=== PATIENT | male | born 1960 | race Caucasian/White ===

== ENCOUNTER 2025-03-12 20:44 | Inpatient (IN) | payer BC ==
[~2025-03-12] VITALS: Ht 172.7 cm; Wt 90.9 kg
--- NOTE | 2025-03-12 20:57 | Physician Documentation ---
History of Present Illness ~ Chief Complaint: Chest Pain Stated Complaint: TRANSFER Time Seen by MD: 20:56 HPI Patient presents to the emergency room as a transfer from [facility] for NSTEMI. He states he woke up from sleep today and that has that has heart was racing. He had attempted to take his blood pressure reading but he would not take therefore he came to the emergency room to be evaluated. He was found to be in SVT was converted with adenosine. Slight elevation of initial troponins and these were trended out with significant increase. Dr. River was consulted recommended that the patient get an investigation. Reports that he had a negative stress test in 2020. Denies chest pain. Medication Reconciliation Allergies: Coded Allergies: No Known Allergies (Unverified , 03/12/25) Review of Systems ROS All review of systems negative except as per HPI Physical Exam Vital Signs: Temperature: 98.7, Source: Oral, Heart Rate: 87, Respiratory Rate: 16, BP: 146/90, Pulse Oximetry: 97, Weight: 90.910 Oxygen Flow Rate: 0 Physical Exam General: Patient is awake, alert, oriented x4 in no acute distress and well appearing.~ Head: Normocephalic and atraumatic. Eyes: Conjunctival normal. EOMI. PERRL. ENT: Mucous membranes moist. Neck: Supple, trachea is midline. Chest: Clear to auscultation bilaterally without rales, rhonchi, or wheezes. There is no accessory muscle use or retractions. Cardiac: RRR without murmurs, gallops, or rubs. Abd: Soft, nondistended, nontender, with normoactive bowel sounds. No guarding, rebound, or rigidity. Progress Results/Orders Results/Orders Orders - ZANE SPICER MD Pt Inr (03/12/25 20:59) PTT (03/12/25 20:59) Heparin 10,000 Unit/Ml 1ml (Heparin 10,0 (03/12/25 21:00) Cbc/Diff (03/12/25 21:06) MG (03/12/25 21:06) BMP (03/12/25 21:06) Hs Troponin I W Calculations (03/12/25 21:06) Page Hospitalist (03/12/25 21:) Fill Out Med Reconciliation (03/12/25 21:06) Heparin 25,000 Unit/250ml Bag (Heparin 2 (03/12/25 21:17) Completed Orders - ZANE SPICER MD Heparin Drip Acs*Rph-To-Dose* (Heparin D (03/12/25 20:55) Communication Order (Communication Order (03/12/25 20:55) Electrocardiogram (03/12/25 20:56) Heparin 25,000 Unit/250ml Bag (Heparin 2 (03/12/25 21:00) No Initial Heparin Drip Bolus (No Initia (03/12/25 21:00) Message To Nursing (03/12/25 21:20) Vital Signs 03/12/25 20:52 Temp 98.7 Pulse 87 Resp 16 B/P (MAP) 146/90 Pulse Ox 97 O2 Flow Rate 0 Laboratory Tests Test 03/12/25 21:07 CBC Comment Coagulation Comments Chemistry Comments EKG/XRAY/CT/US/VASC/MRI EKG : Additional Comment EKG interpreted by myself shows time of 2052, rate 82, sinus rhythm, normal axis, no ST changes Medical Decision Making Additional information obtaine: N/A Findings Patient presents to the emergency room that has transfer from [facility] for NSTEMI on heparin. We will continue heparin. No current chest pain. Heart Score: 5 Differential Dx:Considerations: Include: angina, aortic dissection, chest wall pain, cholelithiasis, CHF, costochondritis, esophageal reflux/spasm, gastritis, herpes zoster, myocardial infarction, pericarditis, pleuritis, pancreatitis, pneumonia, pneumothorax, pulmonary embolus, other Departure Admitted to Inpatient Unit: yes, to hospitalist Impression: Primary Impression: NSTEMI (non-ST elevated myocardial infarction) Condition: Guarded Referrals: NO PRIMARY CARE PROVIDER (PCP) Critical Care Note Total Time (mins): 30 Critical Care Note The very real possibility of a deterioration of this patient's condition required the highest level of my preparedness for sudden, emergent intervention. I provided critical care services, which included medication orders, frequent reevaluations of the patient's condition and response to treatment, ordering and reviewing test results, and discussing the case with various consultants. Excludes time spent performing separately billable procedures. The critical care time associated with the care of the patient was 30 minutes not counting procedures Signature Scribe Signature: No scribe Attestation: The note accurately reflects work and decisions made by me.Zane Spicer MD 03/12/25 21:24 ZANE SPICER MD Mar 12, 2025 20:57
--- NOTE | 2025-03-12 20:57 | ELECTROCARDIOGRAPH REPORT ---
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 Chico Ratliff Measurements Intervals [place] Rate: 82 P: 46 IN: 138 QRS: 20 QRSD: 104 T: 49 QT: 389 QTc: 455 Interpretive Statements Sinus rhythm Low voltage, precordial leads Electronically Signed On 03-13-2025 19:08:[address] Chico Ratliff Please click the below link to view image of tracing.
[2025-03-12] MEDS ORDERED: heparin 10,000 units/1 ML INJ IV PRN (21:00)
[2025-03-12] MEDS ORDERED: heparin 25,000 UNIT/250ml bag 250 ML IV PRN (21:00)
[2025-03-12 21:16] LABS: MEAN PLATELET VOLUME 7.3 FL (7.4-10.4); RED CELL DISTRIBUTION WIDTH 13.3 % (11.5-14.5)
[2025-03-12] MEDS: HEPARIN DRIP INITAL BOLUS --- DO NOT GIVE/ORDER MC ONE (21:20)
[2025-03-12] MEDS: COMMUNICATION ORDER 1 EA MISC MC ONE (21:20)
[2025-03-12] MEDS: HEPARIN DRIP-CARDIAC**PHARMACIST-TO-DOSE IV ONE (21:20)
[2025-03-12] MEDS: heparin 25,000 UNIT/250ml bag 250 ML IV PRN (21:29)
[2025-03-12 21:32] LABS: CREATININE 1.26 MG/DL (0.60-1.10); TOTAL CARBON DIOXIDE 30.2 MMOL/L (24-32); eCRCL 58 ML/MIN; eGFR 58 ML/MIN
[2025-03-12] MEDS: MESSAGE TO NURSING IV ONE ×2 (21:32→22:05)
[2025-03-12 21:56] LABS: APTT 64 SECONDS (22-32); INR 1.1 INR
[2025-03-12] MEDS ORDERED: mag hydrox/Alum hydrox/simeth 30ml oral suspension PO PRN (22:10)
[2025-03-12] MEDS ORDERED: potassium Cl 40MEQ/1/2NS 520ml 520 ML IV PRN (22:10)
[2025-03-12] MEDS ORDERED: magnesium Cl slow-release 64mg tablet PO PRN (22:10)
[2025-03-12] MEDS ORDERED: magnesium hydroxide 30ml (MOM) UD suspension PO PRN (22:10)
[2025-03-12] MEDS ORDERED: potassium Cl 20 mEq SR tablet PO PRN (22:10)
[2025-03-12] MEDS ORDERED: magnesium sulf-water 4G/100mL 100 ML IV PRN (22:10)
[2025-03-12] MEDS ORDERED: ondansetron/PF 4mg/2ml inj IV PRN (22:10)
[2025-03-12] MEDS ORDERED: magnesium sulf-water 2g/50mL 50 ML IV PRN (22:10)
[2025-03-12] MEDS ORDERED: LEVO100T9 PO (22:14)
[2025-03-12] MEDS ORDERED: ZOLP-679 PO (22:15)
--- NOTE | 2025-03-12 22:32 | HISTORY AND PHYSICAL-Residence ---
History & Physical Providers to CC Resident Creating Document: JEWELLMARYTabbySANDI RES ~ History of Present Illness Reason for Admit\Complaint: Chest pain History of Present Illness This is a 64-year-old male transferred from [facility]. Patient reports that around 10:00 a.m. this morning after he woke up from asleep he experienced heart racing and slight chest pain. He reports that chest pain was mild, 2/10 in intensity, mainly present in the center of the chest, not radiating, no relieving or aggravating factors present. He also reported having slight lightheadedness but did not experience any syncope. Patient says that he had similar symptoms in the past with lower intensity and symptoms would resolve by drinking beer. However, this time patient felt this episode was something very unusual and went to the hospital for evaluation. Patient currently denies any symptoms nausea, vomiting. According to the records from [facility] patient presented to the ED with SVT. His heart rate was found to be in high 100s and low 200s on arrival. Patient underwent cardioversion with IV pushes of adenosine. He had no response to 6 mg, had a minimal response to the 1st push of 12 mg, and then converted back to a sinus rhythm with a 2nd push of 12 mg. His chest pain and palpitations resolved after he returned to a normal rhythm. EKG done at the facility showed no acute ischemic changes. Patient reports of having a stress test in 2020 and recently underwent Holter monitoring and Echo to evaluate for episodes of SVT and is also planning to be referred for ablation by Cardiology at [place] but has not yet established with a hogshead inspector, currently has no hogshead inspector that he sees. Patient denies any history of heart attacks or stents placed in the past. His troponins were trending up initially was 0.23, 2.12 and 3.54. Patient was started on heparin drip. Patient was transferred to our facility for higher level of monitoring by Cardiology. Allergies: Coded Allergies: No Known Allergies (Unverified , 03/12/25) Home Medications Home Medications Active Reported Ambien (Zolpidem Tartrate) 10 Mg Tablet 1 Tab PO HSPRN PRN 30 Days Levothyroxine Sodium 100 Mcg Tablet 1 Tab PO DAILY Past Medical History Past Medical History AFib Hypothyroidism Past Surgical History Surgical History Comment Appendectomy Tonsillectomy Past Social History Social History Comment Patient stopped smoking 20 years ago, earlier would smoke 2 packs per day. Patient drinks beer every day, 6-8 cans per day, light low calorie beers. No illicit drug use. PCP- Dr Payne-at [facility] Patient lives at home with his TAMIKA LUNDBERG Constitutional: Denies: no symptoms reported, Eyes: Denies: no symptoms reported ENT: Denies: no symptoms reported Respiratory: Denies: no symptoms reporteD Cardiovascular: Denies: no symptoms reported Gastrointestinal: Denies: no symptoms reported Genitourinary: Denies: no symptoms reported Female Genitalia: Denies: no reported symptoms Neurological: Denies: no symptoms reported Musculoskeletal: Denies: no symptoms reported Endocrine: Denies: no symptoms reported Exam Vitals: Vital Signs Date Time Temp Pulse Resp B/P (MAP) Pulse Ox O2 Delivery O2 Flow Rate FiO2 03/12/25 22:08 81 12 147/91 (109) 98 0 03/12/25 20:52 98.7 General: General: Awake, alert, oriented to time place person, not in acute distress HEENT: Conjunctive are pink, sclerae clear, no icterus, Neck: Supple, no JVD, no lymphadenopathy and thyromegaly. Chest: Equal air entry on both lungs, no added sounds, no wheeze. Cardiovascular: S1-S2 heard, sinus, regular rhythm no gallops, no rubs, no murmurs Abdomen: soft, obese, nontender, no guarding, no rigidity Extremities: No edema, no cyanosis, peripheral pulsations intact Central Nervous System: No focal neurological deficits Musculoskeletal: No joint swelling, deformities, inflammations, and no scoliosis and back tenderness Skin: Warm and dry. Diagnostic Data Last Recorded Lab Results: 03/12/25210603/12/252106 Diagnostic Data: Laboratory Tests Test 03/12/25 21:07 Prothrombin Time 10.8 SECONDS (9.0-12.0) INR International Normalized Ratio 1.1 INR Activated Partial Thromboplast Time 64 SECONDS (22-32) H Coagulation Comments Advance Care Planning Advanced Care plannin - 30 Minutes (Full code) Additional Plan NSTEMI KIA score-1 ZACKERY score 94 Patient currently denying any symptoms of chest pain Patient is hemodynamically stable EKG shows normal sinus rhythm, no ST elevation depressions, no T-wave inversions seen. Troponin elevated 5477, 4102 Patient on heparin drip Given aspirin 325 mg once, atorvastatin 80 mg, metoprolol succinate 25 mg Continue aspirin 81 mg once daily, statin 40 mg from tomorrow. Echocardiogram. Follow-up TSH high 8.49. Patient on telemetry monitoring Consult Cardiology in the a.m. AFib CHADS-VASc score- 1 Patient is currently in sinus rhythm with a controlled heart rate We will continue to monitor him on telemetry Currently patient not on any anticoagulation medications. BYRON- Likely prerenal Creatinine-1.26 Baseline creatinine unknown Patient on fluids NS 75 cc/hour Urine lytes ordered. Follow-up Hypothyroidism- TSH increased 8.49 Free T4 ordered. Follow-up Patient currently on 100 mcg of levothyroxine. Disposition- continue to monitor troponins, patient will be on telemetry monitoring and be admitted to PCU. Code status: Full code DVT profile: Heparin Diet: Heart healthy Sandi Myers PGY-1 i saw and discussed the patient with the resident team and agree with assessment and plan Date of Service: Mar 12, 2025 Billing Provider: STACIA ALEGRIA MD, PREETHI, RES Mar 12, 2025 22:32 STACIA ALEGRIA MD Mar 13, 2025 04:59
[2025-03-12] MEDS: adenosine 3mg/ml 2ml vial IV ONE (22:54)
[2025-03-12] MEDS ORDERED: adenosine 3mg/ml 2ml vial IV ONE (23:00)
[2025-03-12] MEDS: metoprolol succinate 25mg (24-HOUR) SR. Tablet PO ONE (23:04)
[2025-03-12] MEDS: normal saline 1000ml 1,000 ML IV SCH (23:17)
[2025-03-13] VITALS (10 sets, daily range): BP systolic 118–185; BP diastolic 70–110; PULSE 71–78; RESP 10–20; TEMP 97.8–98.7; O2SAT 93–97
--- NOTE | 2025-03-13 01:09 | ELECTROCARDIOGRAPH REPORT ---
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 Jesus Jones Measurements Intervals [place] Rate: 75 P: 41 NM: 141 QRS: 18 QRSD: 109 T: 55 QT: 410 QTc: 458 Interpretive Statements Sinus rhythm RSR' in V1 or V2, right VCD or RVH Electronically Signed On 03-14-2025 13:20:[address] Jesus Jones Please click the below link to view image of tracing.
[2025-03-13 04:55] LABS: MEAN PLATELET VOLUME 7.6 FL (7.4-10.4); RED CELL DISTRIBUTION WIDTH 13.6 % (11.5-14.5)
[2025-03-13 05:23] LABS: CHOL/HDL RATIO 2.4 (0.00-4.99); CREATININE 1.12 MG/DL (0.60-1.10); LDL CHOLESTEROL 122 MG/DL (50-100); TOTAL CARBON DIOXIDE 29.3 MMOL/L (24-32); eCRCL 65 ML/MIN; eGFR 66 ML/MIN
[2025-03-13] MEDS: MESSAGE TO NURSING IV ONE ×3 (05:28→22:05)
[2025-03-13] MEDS: metoprolol succinate 25mg (24-HOUR) SR. Tablet PO SCH (07:49)
[2025-03-13] MEDS: docusate sod 100mg capsule PO SCH (07:50)
[2025-03-13] MEDS: aspirin 81mg, enteric-coated 1 TAB TABLET.DR PO SCH (07:50)
[2025-03-13] MEDS: levoTHYROXINE 100mcg tablet PO SCH (07:50)
[2025-03-13] MEDS: K and/or MAG REPLACEMENT MC SCH (08:00)
[2025-03-13 11:41] LABS: LEUKOCYTE ESTERASE ,URINE NEGATIVE (Neg); NITRITES, URINE NEGATIVE (Neg); OCCULT BLOOD,URINE NEGATIVE (Neg)
[2025-03-13 11:48] LABS: UA COLLECTION TYPE CLN CATCH MIDSTREAM
[2025-03-13 11:51] LABS: OSMOLALITY UA 544.0 MOSM/K (50-1400)
[2025-03-13 11:57] LABS: CREATININE,URINE RANDOM 134.0 MG/DL; UA UREA RANDOM 627.0 MG/DL
[2025-03-13] MEDS: normal saline 1000ml 1,000 ML IV SCH (14:08)
--- NOTE | 2025-03-13 17:16 | CARDIOLOGY REPORT ---
APPROVED REPORT EXAM: Comprehensive 2D, Doppler, and color-flow Echocardiogram. Patient Location: [facility] Heart Rate: 76 bpm Rhythm: NSR Indications CHEST PAIN HS TROPONIN 5477, 4107, 3563, 3365 2D Dimensions RVDd 3.9 cm IVSd 1.0 (0.7-1.1cm) LVDd 5.1 cm PWd 1.0 (0.7-1.1cm) IVSs 1.4 (0.8-1.2cm) LVDs 3.5 (2.5-4.0cm) PWs 1.6 (0.8-1.2cm) LVOT Diameter 2.00 (1.8-2.4cm) LVEF(%) 58.9 (>50%) FS (%) 31.4 % SV 72.6 ml CO 5.2 L/min M-Mode Dimensions Left Atrium(MM) 4.16 (2.5-4.0cm) Aortic Root 3.00 (2.2-3.7cm) Aortic Cusp Exc 1.83 (1.5-2.0cm) Aortic Valve AoV Peak Jamshid. 148.3 cm/s AoV VTI 30.1 cm AO Peak GR. 8.8 mmHg AO Mean GR. 5 mmHg LVOT VTI 25.30 cm LVOT Peak Jamshid. 103.4 cm/s WALDEMAR (VTI) 2.65 cm2 AV DI 0.84 % Mitral Valve MV E Velocity 98.6 cm/s MV Peak Gr. 5 mmHg MV A Velocity 94.8 cm/s MV PHT 68 ms E/A Ratio 1.0 MVA (PHT) 3.24 cm2 MV VMax 110.9 cm/s LEFT VENTRICLE Normal LV size and wall thickness. Overall systolic function is normal. LVEF is 55-60%. RIGHT VENTRICLE RV is mildly dilated with normal function. ATRIA Left atrium is mildly dilated. The right atrium size is normal. AORTIC VALVE Trileaflet AV appears mildly sclerotic without stenosis. No insufficiency. MITRAL VALVE The mitral valve is normal in structure. Mild regurgitation. TRICUSPID VALVE The tricuspid valve is normal in structure. Trace regurgitation. PULMONIC VALVE The pulmonary valve is normal in structure. Physiologic insufficiency. GREAT VESSELS The aortic root is normal in size. The ascending aorta is normal in size. The IVC is normal in size and collapses >50% with inspiration. PERICARDIUM Normal pericardium. No effusion. Other Information Study Quality: Adequate Conclusion Normal LV size and wall thickness. Overall systolic function is normal. LVEF is 55-60%. RV is mildly dilated with normal function. Left atrium is mildly dilated. Trileaflet AV appears mildly sclerotic without stenosis. No insufficiency. The mitral valve is normal in structure. Mild regurgitation. The tricuspid valve is normal in structure. Trace regurgitation. Normal pericardium. No effusion.
--- NOTE | 2025-03-13 17:34 | PROGRESS NOTE- Residence ---
Progress Note - Resident Providers to CC Resident Creating Document: MACIEL WEBSTER, ASHLEY ~ Central Line/PICC still needed: No Davis-Non Protocol Davis Indications Met/Not Met: F/C Indications Not Met Antibiotic Timeout Antibiotic Ordered?: No Subjective Patient denied any further chest pain. No acute other overnight events. Plan for cardiac catheterization today by Dr. Ahuja. Objective Vital Signs Date Time Temp Pulse Resp B/P (MAP) Pulse Ox O2 Delivery O2 Flow Rate FiO2 03/13/25 15:00 98.0 75 20 173/93 (119) 96 Room Air 03/12/25 22:08 0 Result Diagram: 03/13/258 03/13/25437 General: Awake and Alert, no acute distress. HEENT: Conjunctiva pink, Sclera clear, Mucus Membranes moist. Resp: Unlabored. Lungs clear to auscultation bilaterally. Heart: Regular Rate and rhythm, normal S1 and S2 without murmur, rub or gallop. Abdomen: Soft and non tender no organomegaly Extremities: No cyanosis,clubbing or edema. Skin: Warm and Dry. Coagulation Studies Laboratory Tests Test 03/12/25 21:07 03/13/25 11:02 Prothrombin Time 10.8 SECONDS (9.0-12.0) INR International Normalized Ratio 1.1 INR Activated Partial Thromboplast Time 64 SECONDS (22-32) H APTT (Heparin Protocol) 47 SECONDS (45-60) Coagulation Comments Assessment Assessment This is a 64-year-old male patient with a past medical history of hypothyroidism and insomnia who presented to the hospital with complaints of chest pain and was found to have an NSTEMI. He was transferred from [place] to [facility] for higher level cardiac care. Plan Plan NSTEMI: No significant EKG findings No wall motion abnormalities on echocardiogram On aspirin 81 mg daily, atorvastatin 40 mg daily, metoprolol 25 mg daily Heparin drip started overnight Plan for cardiac catheterization today by Dr. Ahuja Continue telemetry monitoring Prn nitroglycerin for chest pain Supraventricular tachycardia: Unable to find atrial fibrillation on telemetry monitoring History of tachycardia, evaluated by outpatient heart monitor One dose adenosine given in the ER; improved heart rate Requested records from outpatient primary care Continue close telemetry monitoring Alcohol withdrawal Consumes up to eight beers per day Placed on mild alcohol withdrawal protocol Consider PRN Lopressor for tachycardia and hypotension overnight/one time low dose of atenolol Hypothyroidism TSH 8.49, T4 0.88 Asymptomatic for hypothyroidism Continue levothyroxine 100 mcg daily as per home medication Outpatient evaluation with repeat TSH and T4 in 6-8 weeks Hyperlipidemia: ASCVD risk of 13.4% Continue atorvastatin 40 mg daily at discharge Lines: PIV Code status: Full code DVT prophylaxis: Heparin rina Webster PGY3, Internal medicine resident Patient was seen, examined and discussed with the attending MD, Dr. Fermin Date of Service: Mar 13, 2025 Billing Provider: BHARAT FERMIN MD Common Visit Codes: 64751-[id number] INP/OBS CARE(HIGH) MACIEL WEBSTER, RES Mar 13, 2025 17:34 BHARAT FERMIN MD Mar 14, 2025 06:40
[2025-03-13] MEDS ORDERED: diazepam inj 5 MG/ML inj. IV PRN (18:00)
--- NOTE | 2025-03-13 18:13 | CONSULTATION REPORT ---
Cardiac Consultation Report Providers to CC ~ Subjective Subjective Cardiology consultation: Abnormal cardiac enzymes. Angina. Ureteral male who has a known history of recurrent paroxysmal atrial tachycardia however he has not wanted to start medication or have ablation had an episode was more severe and felt different than before. In the past he would treated with a couple of beers. By his heart rate was as high as 200 and save to 12 mg push of Adenocard prior to conversion. He had typical angina during it. He was placed on heparin and transferred here as his troponin was five. Nuclear stress test in 2020 was apparently unremarkable. General cares with Dr. Freeman. Patient thinks he is medically nonadherent. Allergies none known medications Ambien and levothyroxine as an outpatient. An outpatient he takes levothyroxine BNP. Does not smoke. He drinks up to eight beers per day. Presently he is pain-free. Up until this time he kept it from his that he had runs of supraventricular tachycardia. This time she came to the emergency room with him. She will TSH was 8.49. Patient is on heparin and received aspirin atorvastatin metoprolol succinate. Objective Vitals Vital Signs Date Time Temp Pulse Resp B/P (MAP) Pulse Ox O2 Delivery O2 Flow Rate FiO2 03/13/25 15:00 98.0 75 20 173/93 (119) 96 Room Air 03/12/25 22:08 0 Lab Results: 03/13/25 0438 03/13/25 0438 Objective Carotid brisk upstroke no bruit chest clear to auscultation percussion heart no murmur no S3 gallop no rub abdomen active bowel sounds no bruits pulses plus two upper and lower extremities no edema ocular motion intact no nystagmus no tremors speech fluent Coagulation Studies Laboratory Tests Test 03/12/25 21:07 03/13/25 17:26 Prothrombin Time 10.8 SECONDS (9.0-12.0) INR International Normalized Ratio 1.1 INR Activated Partial Thromboplast Time 64 SECONDS (22-32) H Coagulation Comments Other Results Echocardiogram within normal limits electrocardiogram within normal limits creatinine 1.12. Should troponin five decreasing now down to four. Problem\Assessment\Plan Additional Plan Impression: Supraventricular tachycardia with angina pectoris and troponin rise to five. Post conversion chemically no ST depression or elevation. Troponins are decreasing patient is on heparin. Asymptomatic at this time. Recommendation 1. Cessation of beer use otherwise your arrhythmias are going to continue to occur and ultimately he will have atrial fibrillation. 2. Diagnostic coronary angiography to exclude hemodynamically significant coronary arterial disease. 3. Coronary arteries are adequate without severe stenoses an outpatient should have ablation treatment of supraventricular tachycardia. Risks benefits alternatives of diagnostic coronary angiography intervention as may be needed was discussed with patient. Risks include and not restricted to stroke myocardial infarction renal failure neurologic vascular complications bleeding complications allergic reaction emergency coronary bypass grafting and its attendant complications. Going to discuss it with his . tentatively he is scheduled for 9:30 a.m. in a.m.. REGI PEREZ MD Mar 13, 2025 18:13
[2025-03-13] MEDS: HYDROcodone/acetaminophen 5mg/325mg tablet PO PRN (19:15)
[2025-03-13] MEDS: hydrALAZINE 20mg/ml inj. IV ONE (23:43)
[2025-03-14] VITALS (16 sets, daily range): BP systolic 123–171; BP diastolic 70–101; PULSE 61–85; RESP 12–18; TEMP 97.3–98.2; O2SAT 96–99
[2025-03-14] MEDS: MESSAGE TO NURSING IV ONE ×2 (00:25→07:40)
[2025-03-14 05:57] LABS: CREATININE 0.89 MG/DL (0.60-1.10); TOTAL CARBON DIOXIDE 30.5 MMOL/L (24-32); eCRCL 82 ML/MIN; eGFR 86 ML/MIN
[2025-03-14 05:59] LABS: MEAN PLATELET VOLUME 8.2 FL (7.4-10.4); RED CELL DISTRIBUTION WIDTH 13.0 % (11.5-14.5)
[2025-03-14] MEDS ORDERED: LIDOcaine 1% 30ml preserv. free vial ONE (10:09)
[2025-03-14] MEDS ORDERED: midazolam 1 mg/ML 2ml injection ONE (10:09)
[2025-03-14] MEDS ORDERED: fentaNYL/PF 50MCG/1 ML 2ML syringe ONE (10:09)
[2025-03-14] MEDS ORDERED: heparin 1,000unit/ml 10ml vial 0 ML ONE (10:09)
[2025-03-14] MEDS ORDERED: iohexol 350 MG/ML 50ML vial IV ONE (10:09)
[2025-03-14] MEDS: hydrALAZINE 20mg/ml inj. IV ONE (10:39)
[2025-03-14] MEDS ORDERED: HYDROcodone/acetaminophen 10/325mg tab PO PRN (11:35)
[2025-03-14] MEDS ORDERED: OXAZEpam 15mg capsule PO PRN (11:35)
[2025-03-14] MEDS: normal saline 1000ml 1,000 ML IV SCH (11:35)
[2025-03-14] MEDS ORDERED: ondansetron/PF 4mg/2ml inj IV PRN (11:35)
--- NOTE | 2025-03-14 12:37 | CARDIAC CATH REPORT ---
Cardiology Post Cath Findings Findings Findings: Uncomplicated left heart catheterization coronary angiography. Indication: Patient transferred post SVT requiring 24 mg of Adenocard for conversion with associated chest pain at that time and ST-T changes. Troponin arin to five. He was just to have a non ST elevated OH he is to undergo diagnostic coronary angiography to exclude hemodynamically significant coronary artery disease. Weeks ago he was referred to [place] by his primary care physician to have ablation. He has had a prior outpatient evaluation finding episodes of rapid tachycardia. I do not have the actual strips. 1. Normal left ventriculogram ejection fraction 70% 2. Normal left and right coronary arteries with intimal irregularities consistent with patient's age. Impression: Non ST elevated OH was secondary to supraventricular tachycardia rate up to 200. Recommendation 1. Complete cessation of alcohol drinks 6-12 beers per day accor ding to . 2. Follow-up for EP evaluation and treatment. Follow your primary care's direction. 3. If he remains stable discharge in a.m.. REGI PEREZ MD Mar 14, 2025 12:37
[2025-03-14 13:00] LABS: PRO BRAIN NATRIURETIC PEPTIDE 1126 PG/ML (0-125)
[2025-03-14] MEDS: HYDROcodone/acetaminophen 10/325mg tab PO PRN (14:43)
--- NOTE | 2025-03-14 16:46 | CARDIOLOGY REPORT ---
DATE OF SERVICE: 03/14/2025 DICTATING PHYSICIAN: Wong Ahuja MD DATE OF PROCEDURE: 03/14/2025 PROCEDURES: 1. Left heart catheterization. 2. Left ventriculography. 3. Selective right and left coronary arteriography. 4. Right iliofemoral arteriogram, Angio-Seal application. 5. Conscious sedation administration for 30 minutes. BRIEF HISTORY AND INDICATION: The patient had SVT 200 beats per minute, troponin rise to [address] changes. He was judged to have non-ST elevated W[place], perhaps secondary to the SVT. He is to undergo diagnostic coronary angiography to exclude hemodynamically significant coronary artery disease. He has treated hypothyroidism. Unfortunately, he drinks up to 12 beers per day. He has had past referral to [facility] for ablation of supraventricular tachycardia, but has not yet gone. Risks, benefits, and alternatives of diagnostic heart catheterization were discussed with the patient. He discussed it with his and he has decided to proceed. Risks include but are not restricted to , stroke, myocardial infarction, renal failure, neurologic and vascular complication, bleeding complication, allergic reaction, emergency coronary artery bypass grafting, and its attendant complications. TECHNIQUE: Following usual sterile preparation and draping, the right groin was infiltrated with 10 mL of 1% lidocaine local anesthetic. Conscious sedation was achieved with 25 mg of Benadryl, 2 mg of Versed, and 100 mcg of fentanyl. The patient arrived to the label cutter on 900 units of intravenous heparin per hour. He was maintained on oxygen 2 liters per minute, normal saline 100 mL per hour. Following single wall puncture technique, a J-tip guidewire lead and 6-Maltese sheath were then introduced to the right femoral artery. Selective left and right coronary arteriography in all projectional obliquities were performed with 6-Maltese femoral, left 4 and right 4 Rambo-shaped catheters. Left ventriculography in right anterior oblique projection was performed with a straight pigtail catheter. Catheter exchanges were under fluoroscopic guidance and J-tip guidewire lead. At termination, a right iliofemoral arteriogram was performed. An Angio-Seal was applied in the label cutter. Hemostasis was obtained. There were no complications. 90 mL of Omnipaque 350 contrast was administered. Fluoroscopy time was 3 minutes. Radiation exposure of 3674 cGy/cm2. FINDINGS: AO 134/71, LV 134/1-8, left ventriculogram ejection fraction 70%. Normal wall motion and right iliofemoral arteries smooth. CORONARY ARTERIES: Smooth left main coronary and left anterior descending, intermediate branch and codominant left circumflex. Smooth right coronary with large posterior descending and posterolateral that wrapped around the apex of the myocardium. RESULTS: 1. Normal left ventriculogram ejection fraction 70%. 2. Smooth left main coronary artery. 3. Smooth left anterior descending, intermediate and codominant left circumflex. 4. Smooth codominant right coronary, posterior descending, and posterolateral branches. COMMENT: The patient's troponin rise, angina, and non-ST elevated WV were secondary to supraventricular tachycardia, rate up to 200. RECOMMENDATIONS: 1. EP evaluation and ablation. 2. Complete cessation of alcohol. Wong Ahuja MD TID: [id number] RECEIPT: [id number] TR/ cc: [facility], Devon Freeman MD
--- NOTE | 2025-03-14 17:40 | PROGRESS NOTE- Residence ---
Progress Note - Resident Providers to CC Resident Creating Document: SYLVAIN WEBSTER RES ~ Central Line/PICC still needed: No Davis-Non Protocol Davis Indications Met/Not Met: F/C Indications Not Met Antibiotic Timeout Antibiotic Ordered?: No Subjective Cardiac catheterization performed today, no coronary artery disease found. The coronaries were completely normal in the cardiac catheterization report. As per the Cardiology, they recommended EP evaluation for ablation and complete cessation of the alcohol. The patient continues to feel some restlessness with chest pressure as well as some headache. Pain well-controlled after the procedure. Port of entry was the right groin Objective Vital Signs Date Time Temp Pulse Resp B/P (MAP) Pulse Ox O2 Delivery O2 Flow Rate FiO2 03/14/25 14:43 15 03/14/25 11:00 97.6 75 160/94 (116) 97 Room Air 03/12/25 22:08 0 Result Diagram: 03/14/2551803/14/25518 General: Awake and Alert, no acute distress. HEENT: Conjunctiva pink, Sclera clear, Mucus Membranes moist. Resp: Unlabored. Lungs clear to auscultation bilaterally. Heart: Regular Rate and rhythm, normal S1 and S2 without murmur, rub or gallop. Abdomen: Soft and non tender no organomegaly Extremities: No cyanosis,clubbing or edema. Right groin with compression bandaging Skin: Warm and Dry. Coagulation Studies Laboratory Tests Test 03/12/25 21:07 03/14/25 05:19 Prothrombin Time 10.8 SECONDS (9.0-12.0) INR International Normalized Ratio 1.1 INR Activated Partial Thromboplast Time 64 SECONDS (22-32) H APTT (Heparin Protocol) 48 SECONDS (45-60) Coagulation Comments Assessment Assessment This is a 64-year-old male patient with a past medical history of hypothyroidism and insomnia who presented to the hospital with complaints of chest pain and was found to have an NSTEMI. He was transferred from [place] to [facility] for higher level cardiac care. Plan Plan NSTEMI: Ruled out Troponinemia secondary to type 2 MO No CAD on cardiac catheterization, smooth left main coronary artery, lad, codominant LCX and RCA, smooth posterior descending and posterolateral branches of the RCA Echocardiogram revealed no wall motion abnormalities, continue atorvastatin and metoprolol. Heparin drip and aspirin discontinued Continue telemetry monitoring Supraventricular tachycardia: Type 2 MO secondary to above Heart rate between 70 to 90s on telemetry monitoring Increase metoprolol to 50 mg daily Close telemetry monitoring Outpatient EP evaluation Recommendations for complete alcohol cessation Hypertension: Likely chronic Continue metoprolol 50 mg daily Outpatient evaluation by PCP for control Goal between 130/70 mmHg PRN labetalol for elevated blood pressure Alcohol withdrawal Consumes up to eight beers per day Placed on mild alcohol withdrawal protocol Consider PRN Lopressor for tachycardia and hypotension overnight/one time low dose of atenolol Hypothyroidism TSH 8.49, T4 0.88 Asymptomatic for hypothyroidism Continue levothyroxine 100 mcg daily as per home medication Outpatient evaluation with repeat TSH and T4 in 6-8 weeks Hyperlipidemia: ASCVD risk of 13.4% Continue atorvastatin 40 mg daily at discharge Lines: PIV Code status: Full code DVT prophylaxis: Heparin SQ Disposition: Patient had cardiac catheterization today, no CAD findings were noted. He has not had any further episodes of tachycardia either. However, postprocedure patient felt uncomfortable to be discharged due to persistent headache as well as some chest pressure which also could be secondary to anxiety postprocedure. We increased the metoprolol dose to 50 mg. In view of also continuing close monitoring of his blood pressure. Sylvain Webster PGY3, Internal medicine resident Patient was seen, examined and discussed with the attending MD, Dr. Fermin Date of Service: Mar 14, 2025 Billing Provider: BHARAT FERMIN MD Common Visit Codes: [id number] INP/OBS CARE(HIGH) SYLVAIN WEBSTER, RES Mar 14, 2025 17:40 BHARAT FERMIN MD Mar 15, 2025 08:14
[2025-03-14] MEDS: potassium Cl 20 mEq SR tablet PO PRN (20:10)
[2025-03-15] VITALS (10 sets, daily range): BP systolic 121–174; BP diastolic 71–111; PULSE 59–91; RESP 11–19; TEMP 97.3–98.1; O2SAT 96–100
[2025-03-15 05:46] LABS: MEAN PLATELET VOLUME 8.1 FL (7.4-10.4); RED CELL DISTRIBUTION WIDTH 13.1 % (11.5-14.5)
[2025-03-15 06:00] LABS: CREATININE 1.03 MG/DL (0.60-1.10); TOTAL CARBON DIOXIDE 27.6 MMOL/L (24-32); eCRCL 71 ML/MIN; eGFR 73 ML/MIN
[2025-03-15] MEDS: metoprolol succinate 25mg (24-HOUR) SR. Tablet PO SCH (07:29)
--- NOTE | 2025-03-15 12:01 | PROGRESS NOTE ---
Progress Note Cardiology Providers to CC ~ Subjective Subjective Cardiology progress note: Supraventricular tachycardia rate up to [address] elevated [place] from lack of perfusion. Normal coronary arteries. [facility] staff has noticed that patient is intermittently confused does not seem to follow directions well. He drinks up to 12 beers per day and this may just be withdrawal. According to the his behavior was noted to be changed since 03/13. Coronaries were normal echocardiogram normal. Recommendation; neurologic workup to exclude cerebrovascular accident. Objective Result Diagram: 03/15/25 0501 03/15/25 0501 Coagulation Studies Laboratory Tests Test 03/12/25 21:07 03/14/25 05:19 Prothrombin Time 10.8 SECONDS (9.0-12.0) INR International Normalized Ratio 1.1 INR Activated Partial Thromboplast Time 64 SECONDS (22-32) H APTT (Heparin Protocol) 48 SECONDS (45-60) Coagulation Comments REGI PEREZ MD Mar 15, 2025 12:01
--- NOTE | 2025-03-15 13:13 | RADIOLOGY REPORT ---
COMPUTERIZED TOMOGRAPHY OF THE HEAD WITHOUT CONTRAST REASON FOR STUDY: Headache COMPARISON: None TECHNIQUE: Helical tomographic scans were obtained through the brain. 2-D coronal and sagittal reformatted images are provided. Radiation optimization: All CT scans at this facility use at least one of these dose optimization techniques: Automated exposure control mA and/or kV adjustment per patient size (includes targeted exams where dose is matched to clinical indication) or iterative reconstruction. RADIATION DOSE: CTDI: 58 mGy DLP: 1061 mGy-cm FINDINGS: No suspicious intracranial hyperdensity to suggest acute blood. There is no mass effect nor midline shift. There is no hydrocephalus. The suprasellar cistern is intact. The calvarium is intact. There is a small retention cyst versus polyp along the floor of the right maxillary sinus. The vi sualized mastoid air cells and paranasal sinuses are otherwise clear. IMPRESSION: No acute intracranial abnormality. Small retention cyst versus polyp along the floor of the right maxillary sinus. Correlate clinically for acute sinusitis.
--- NOTE | 2025-03-15 15:46 | PROGRESS NOTE- Residence ---
Progress Note - Resident Providers to CC Resident Creating Document: SYLVAIN WEBSTER, ASHLEY ~ Central Line/PICC still needed: No Davis-Non Protocol Davis Indications Met/Not Met: F/C Indications Not Met Antibiotic Timeout Antibiotic Ordered?: No Subjective Patient complained of ongoing dizziness without the sensation of the room spinning but worsening on change in head position, mild headache that improves with Lee and loss of depth perception. He tried to ambulate in the morning with the nurse and had worsening of symptoms of dizziness in form of swaying of his gait. Blood pressure at the time was 139 systolic. His orthostatics were also negative. Additionally, he has also been confused today. Objective Vital Signs Date Time Temp Pulse Resp B/P (MAP) Pulse Ox O2 Delivery O2 Flow Rate FiO2 03/15/25 10:56 97.7 70 14 130/83 (99) 99 Room Air 03/15/25 08:07 0.0 Result Diagram: 03/15/25 0501 03/15/25 0501 General: Awake and Alert, no acute distress. HEENT: Conjunctiva pink, Sclera clear, Mucus Membranes moist. Resp: Unlabored. Lungs clear to auscultation bilaterally. Heart: Regular Rate and rhythm, normal S1 and S2 without murmur, rub or gallop. Abdomen: Soft and non tender no organomegaly WATER POLLUTION SPECIALIST: Conscious, coherent, oriented x4. No cranial nerve deficits, pupils equal and reactive bilaterally to light. No nystagmus. No motor deficits. No sensory deficits. Mild dysdiadochokinesia of the upper extremity on the right, and left lower extremity. Extremities: No cyanosis,clubbing or edema. Right groin with compression bandaging Skin: Warm and Dry. Coagulation Studies Laboratory Tests Test 03/12/25 21:07 03/14/25 05:19 Prothrombin Time 10.8 SECONDS (9.0-12.0) INR International Normalized Ratio 1.1 INR Activated Partial Thromboplast Time 64 SECONDS (22-32) H APTT (Heparin Protocol) 48 SECONDS (45-60) Coagulation Comments Assessment Assessment This is a 64-year-old male patient with a past medical history of hypothyroidism and insomnia who presented to the hospital with complaints of chest pain and was found to have an NSTEMI. He was transferred from [place] to [facility] for higher level cardiac care. Plan Plan NSTEMI: Ruled out Troponinemia secondary to type 2 UT CAD ruled out Echocardiogram revealed no wall motion abnormalities, continue atorvastatin and metoprolol Heart rate within normal limits Continue telemetry monitoring Dizziness under evaluation: Central versus peripheral Mild dysdiadochokinesia noted One dose meclizine ordered, increased atorvastatin to 80 mg daily. Continue aspirin Evaluation of stroke with imaging studies. CTA head ruled out acute intracranial abnormalities, CTA head MRI head ordered We will obtain tele neurology evaluation Avoid using benzodiazepines overnight Fall precautions. PT eval and treat Supraventricular tachycardia: Type 2 UT secondary to above Tolerating metoprolol 50 well Close telemetry monitoring Outpatient EP evaluation Recommendations and resources for complete alcohol cessation Hypertension: Likely chronic Insufficiently controlled with metoprolol. Started lisinopril 10 mg Outpatient evaluation by PCP for monitoring and follow up Goal between 130/70 mmHg PRN labetalol for elevated blood pressure Alcohol withdrawal Consumes up to eight beers per day Placed on mild alcohol withdrawal protocol Consider PRN Lopressor for tachycardia and hypotension overnight/one time low dose of atenolol Hypothyroidism TSH 8.49, T4 0.88 Asymptomatic for hypothyroidism Continue levothyroxine 100 mcg daily as per home medication Outpatient evaluation with repeat TSH and T4 in 6-8 weeks Hyperlipidemia: ASCVD risk of 13.4% Increased atorvastatin to 80 mg daily Lines: PIV Code status: Full code DVT prophylaxis: Heparin SQ Disposition: Patient had new onset dizziness, currently evaluating for central or peripheral. Imaging studies ordered. Avoid use of benzodiazepines overnight Sylvain Webster PGY3, Internal medicine resident Patient was seen, examined and discussed with the attending MD, Dr. Fermin Date of Service: Mar 15, 2025 Billing Provider: BHARAT FERMIN MD Common Visit Codes: [id number] INP/OBS CARE(HIGH) SYLVAIN WEBSTER, RES Mar 15, 2025 15:46 BHARAT FERMIN MD Mar 16, 2025 06:46
--- NOTE | 2025-03-15 17:39 | RADIOLOGY REPORT ---
EXAM: CT CTA HEAD CLINICAL HISTORY: Headache TECHNIQUE: CT angiogram of the head was performed without and with intravenous contrast. 100 ml of omnipaque 350 was administered intravenously. 3D MIP reconstructed images were created and archived on the PACS system. This exam was performed according to our departmental dose optimization program. Up-to-date CT equipment and radiation dose reduction techniques are utilized as appropriate. COMPARISON: CT CT HEAD on DOS: 03/15/25 FINDINGS: CTA head: The distal internal carotid, vertebral, and basilar arteries are patent without focal narrowing or occlusion. The anterior, middle, and posterior cerebral arteries are patent without focal narrowing. No aneurysm or arteriovenous malformation is identified. Mild mucosal thickening of the bilateral maxillary sinuses IMPRESSION: 1. Widely patent arteries in the head without large vessel occlusion, significant stenosis, aneurysm, or AVM.
[2025-03-15] MEDS: HYDROcodone/acetaminophen 5mg/325mg tablet PO PRN (19:20)
[2025-03-16 06:17] LABS: MEAN PLATELET VOLUME 8.5 FL (7.4-10.4); RED CELL DISTRIBUTION WIDTH 13.4 % (11.5-14.5)
[2025-03-16 06:22] LABS: CREATININE 1.25 MG/DL (0.60-1.10); TOTAL CARBON DIOXIDE 29.7 MMOL/L (24-32); eCRCL 59 ML/MIN; eGFR 58 ML/MIN
[2025-03-16 07:17] VITALS: BP 118/77; PULSE 76; RESP 10; TEMP 97.8; O2SAT 96
[2025-03-16] MEDS: normal saline 500ml IV soln 1,000 ML IV ONE (07:55)
[2025-03-16 08:00] VITALS: BP_SYST 123; BP_SYST 132; BP_SYST 133; BP_DIAS 74; BP_DIAS 81; PULSE 63; PULSE 64; PULSE 74; RESP 10; O2SAT 96
--- NOTE | 2025-03-16 09:59 | RADIOLOGY REPORT ---
[facility] EXAMINATION: MR MRI HEAD INDICATION: New onset confusion, new onset imbalance COMPARISON: CT CTA HEAD on DOS: 03/15/25, CT CT HEAD on DOS: 03/15/25 TECHNIQUE: Multiplanar, multisequence magnetic resonance imaging of the brain was performed without the use of intravenous contrast. FINDINGS: No evidence of acute infarct. No intracranial hemorrhage. No mass effect. There is periventricular/deep white matter T2/FLAIR hyperintensity is nonspecific, but most commonly associated with chronic microvascular disease. The ventricles and sulci are normal in size for age. Clear basal cisterns. Flow voids in the major intracranial vessels are maintained. No abnormality of the orbits. Paranasal sinuses and mastoid air cells are clear. No abnormality of the visualized osseous structures and extracranial soft tissues. IMPRESSION: 1. No acute infarct, intracranial hemorrhage, mass effect, or hydrocephalus.
[2025-03-16] MEDS: normal saline 1000ml 1,000 ML IV SCH (10:00)
[2025-03-16 11:13] VITALS: BP 119/63; PULSE 67; RESP 15; TEMP 97.4; O2SAT 98
--- NOTE | 2025-03-16 15:22 | PROGRESS NOTE ---
Progress Note Cardiology Providers to CC ~ Subjective Subjective Cardiology progress note: 1. SVT with nonobstructive coronary artery disease irregularities only with non ST elevated [place] troponin rise secondary to SVT. 2. Patient has had neurologic workup and final diagnosis is alcohol withdrawal. Since hospitalization on medical therapy has not had any recurrence of supraventricular tachycardia. Objective Result Diagram: 03/16/25 0533 03/16/25532 Objective Cardiovascular examination is normal. Coagulation Studies Laboratory Tests Test 03/12/25 21:07 03/14/25 05:19 Prothrombin Time 10.8 SECONDS (9.0-12.0) INR International Normalized Ratio 1.1 INR Activated Partial Thromboplast Time 64 SECONDS (22-32) H APTT (Heparin Protocol) 48 SECONDS (45-60) Coagulation Comments Other Results MRI MRA CAT scan all normal. Problem\Assessment\Plan Additional Plan Assessment and plan: Cardiac status stable. Patient will require ablation as an outpatient. He is to stop drinking alcohol completely. REGI PEREZ MD Mar 16, 2025 15:22
[2025-03-16 15:50] VITALS: BP 130/75; PULSE 66; RESP 15; TEMP 97.6; O2SAT 96
[2025-03-16 18:00] VITALS: BP 144/88; PULSE 62; RESP 15; TEMP 96.6; O2SAT 99
[2025-03-16 18:36] LABS: CREATININE 1.38 MG/DL (0.60-1.10); TOTAL CARBON DIOXIDE 30.9 MMOL/L (24-32); eCRCL 53 ML/MIN; eGFR 52 ML/MIN
--- NOTE | 2025-03-16 19:14 | PROGRESS NOTE- Residence ---
Progress Note - Resident Providers to CC Resident Creating Document: SYLVAIN WEBSTER, ASHLEY ~ Central Line/PICC still needed: No Davis-Non Protocol Davis Indications Met/Not Met: F/C Indications Not Met Antibiotic Timeout Antibiotic Ordered?: No Subjective Patient is doing much better today, however, his creatinine increased slightly from baseline due to which IV fluids were being supplemented and his function is being monitored. The patient is otherwise asymptomatic. He was able to ambulate around the floor without any distress. Objective Vital Signs Date Time Temp Pulse Resp B/P (MAP) Pulse Ox O2 Delivery O2 Flow Rate FiO2 03/16/25 15:50 97.6 66 15 130/75 (93) 96 Room Air 03/15/25 08:07 0.0 Result Diagram: 03/16/25 0533 03/16/25 1754 General: Awake and Alert, no acute distress. HEENT: Conjunctiva pink, Sclera clear, Mucus Membranes moist. Resp: Unlabored. Lungs clear to auscultation bilaterally. Heart: Regular Rate and rhythm, normal S1 and S2 without murmur, rub or gallop. Abdomen: Soft and non tender no organomegaly Extremities: No cyanosis,clubbing or edema. Right groin with compression bandaging Skin: Warm and Dry. Coagulation Studies Laboratory Tests Test 03/12/25 21:07 03/14/25 05:19 Prothrombin Time 10.8 SECONDS (9.0-12.0) INR International Normalized Ratio 1.1 INR Activated Partial Thromboplast Time 64 SECONDS (22-32) H APTT (Heparin Protocol) 48 SECONDS (45-60) Coagulation Comments Assessment Assessment This is a 64-year-old male patient with a past medical history of hypothyroidism and insomnia who presented to the hospital with complaints of chest pain and was found to have an NSTEMI. He was transferred from [place] to [facility] for higher level cardiac care. Plan Plan Acute kidney injury: Baseline creatinine 0.8 Secondary to ATN Likely contrast induced/medication induced IV fluids rate of 100 cc/hour after 500 mL bolus today Continue close monitoring of BMP in a.m. NSTEMI: Ruled out Troponinemia secondary to type 2 ND CAD ruled out Echocardiogram revealed no wall motion abnormalities, continue atorvastatin and metoprolol Heart rate within normal limits Continue telemetry monitoring Dizziness under evaluation: Peripheral/medication induced One dose meclizine ordered, improve dizziness. CTA head, CTA and MRI negative for acute stroke Avoid using benzodiazepines at night Sleep aids with melatonin 6 mg and Ambien Supraventricular tachycardia: Type 2 ND secondary to above Tolerating metoprolol 50 well Close telemetry monitoring Outpatient EP evaluation Recommendations and resources for complete alcohol cessation Hypertension: Likely chronic Insufficiently controlled with metoprolol. Discontinue lisinopril, continue metoprolol Add amlodipine for blood pressure starting tomorrow Outpatient evaluation by PCP for monitoring and follow up Goal between 130/70 mmHg PRN labetalol for elevated blood pressure Alcohol withdrawal Consumes up to eight beers per day Placed on mild alcohol withdrawal protocol Consider PRN Lopressor for tachycardia and hypotension overnight/one time low dose of atenolol Hypothyroidism TSH 8.49, T4 0.88 Asymptomatic for hypothyroidism Continue levothyroxine 100 mcg daily as per home medication Outpatient evaluation with repeat TSH and T4 in 6-8 weeks Hyperlipidemia: ASCVD risk of 13.4% Increased atorvastatin to 80 mg daily Lines: PIV Code status: Full code DVT prophylaxis: Heparin SQ Disposition: Patient had new onset dizziness, currently evaluating for central or peripheral. Imaging studies ordered. Avoid use of benzodiazepines overnight Sylvain Webster PGY3, Internal medicine resident Patient was seen, examined and discussed with the attending MD, Dr. Fermin Date of Service: Mar 16, 2025 Billing Provider: BHARAT FERMIN MD Common Visit Codes: [id number] INP/OBS CARE(HIGH) SYLVAIN WEBSTER, RES Mar 16, 2025 19:14 BHARAT FERMIN MD Mar 17, 2025 07:17
[2025-03-16 22:00] VITALS: BP 132/83; PULSE 69; RESP 15; TEMP 97.1; O2SAT 99
[2025-03-17 02:00] VITALS: BP 136/78; PULSE 57; RESP 11; TEMP 97.2; O2SAT 96
[2025-03-17 06:00] VITALS: BP 114/69; PULSE 54; RESP 19; TEMP 97.8; O2SAT 96
[2025-03-17 06:44] LABS: MEAN PLATELET VOLUME 8.5 FL (7.4-10.4); RED CELL DISTRIBUTION WIDTH 13.2 % (11.5-14.5)
[2025-03-17 06:53] LABS: CREATININE 0.98 MG/DL (0.60-1.10); TOTAL CARBON DIOXIDE 25.2 MMOL/L (24-32); eCRCL 75 ML/MIN; eGFR 77 ML/MIN
[2025-03-17 08:00] VITALS: BP_SYST 114; BP_SYST 116; BP_SYST 120; BP_DIAS 69; BP_DIAS 70; BP_DIAS 72; PULSE 60; PULSE 64; PULSE 69; RESP 19; O2SAT 96
[2025-03-17] MEDS ORDERED: ATOR40TA72 PO (08:00)
[2025-03-17] MEDS ORDERED: NOR5T PO (08:00)
[2025-03-17] MEDS ORDERED: METO-395 PO (08:00)
[2025-03-17 08:55] VITALS: BP_SYST 116; PULSE 64
[2025-03-17] MEDS ORDERED: ASPI-1265 PO (10:55)
--- NOTE | 2025-03-17 15:45 | DISCHARGE SUMMARY-Residence ---
Discharge Summary Providers to CC Resident Creating Document: MACIEL WHITE RES ~ Discharge Summary Admission Diagnosis: CHEST PAIN Hospital Course DATE OF ADMISSION: 03/12/2025 DATE OF DISCHARGE: 03/16/2025 Discharge Diagnosis\Comment: NSTEMI, obstructive CAD ruled out Supraventricular tachycardia; resolved Acute kidney injury; resolved Acute stroke ruled out Dizziness secondary to possibly BPPV and Ativan induced, resolved Operations\Procedures: Coronary angiogram by Dr. Ahuja Consultants: Dr. Ahuja Complications: None Condition on DC: Stable for transfer New Medications: Aspirin (Aspirin) 81 Mg Tab.chew 1 TAB PO DAILY for 30 Days, #30 TAB.CHEW Atorvastatin Calcium (Atorvastatin Calcium) 40 Mg Tablet 1 TAB PO DAILY for 30 Days, #30 TAB 0 Refills Amlodipine Besylate (Amlodipine Besylate) 5 Mg Tablet 5 MG PO DAILY, #30 TAB Metoprolol Succinate (Metoprolol Succinate) 25 Mg Tab.sr.24h 50 MG PO DAILY, #30 TAB.SR Continued Medications: Levothyroxine Sodium (Levothyroxine Sodium) 100 Mcg Tablet 1 TAB PO DAILY Zolpidem Tartrate (Ambien) 10 Mg Tablet 1 TAB PO HSPRN PRN for sleep for 30 Days, #30 TAB 0 Refills Discharge Summary: This is a 64-year-old male patient with a past medical history of alcohol use disorder presents to the hospital with complaints of substance chest pain, palpitations, dizziness and nausea. In the ER, the patient had an SVT in the 200s, required adenosine which resolved the episode. Rest of the vitals were stable. He was noted to have significantly elevated troponins as high as 5477 with she had decreased to 3365. EKG revealed sinus rhythm. Cardiology was consulted who performed a cardiac catheterization on the patient and revealed no CAD with completely smooth right and left cardiac vessels. Heparin drip was started at admission was discontinued after the cardiac catheterization. He was found to have elevated lipid panel with mixed hyper lipid due to which atorvastatin 40 mg was continued. He was monitored on telemetry and has had no further episodes of tachycardia. His thyroid function was within normal limits. He had no further episodes of chest pain. However, the patient was developed worsening of his dizziness on the 2nd day of the hospitalization with associated swaying during ambulation to the left. Due to this reason, the patient was evaluated for stroke with a CT head, CTA head and an MRI which were all negative ruling out acute stroke and dizziness most likely secondary to possible BPPV associated with some nausea. Meclizine one time dose was given. Additionally, the patient also had mild BYRON which improved with IV fluids. After he maintain medical stability, he was discharged home with no services and with the following advice at discharge: Kindly follow up with your primary care provider and Cardiology after discharge. 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 If your dizziness tends to persist, this is likely secondary to a condition called BPPV from your ear. Try to see a physical therapist who can help correct this. If you have associated nausea, you can try taking a meclizine by obtaining a prescription from your primary care provider. Your creatinine has returned back to normal. Kindly remain hydrated drinking at least 2-3 L of water every day. You were also found to have elevated thyroid function studies with elevated TSH but normal T4. We recommend continuing your same home dosage of levothyroxine but following up with the PCP to repeat a T4 and TSH in six weeks. If your symptoms return, kindly return back to the ER. Physical exam at discharge: General: Awake and Alert, no acute distress. HEENT: Conjunctiva pink, Sclera clear, Mucus Membranes moist. Resp: Unlabored. Lungs clear to auscultation bilaterally. Heart: Regular Rate and rhythm, normal S1 and S2 without murmur, rub or gallop. Abdomen: Soft and non tender no organomegaly Extremities: No cyanosis,clubbing or edema. Right groin with compression bandaging Skin: Warm and Dry. Labs at discharge: WBC 6.6, RBC 3.9, hemoglobin 13.5, platelet 205 Sodium 137, potassium 3.6, chloride 106, bicarb 25.2, BUN 13, creatinine 0.9, blood glucose 108, calcium 8.0, total bilirubin 0.8, AST 54, ALT 81, alkaline phosphatase 107, albumin 2.9 Medications at discharge: Aspirin 81 mg daily, atorvastatin 40 mg daily, metoprolol 50 mg daily, amlodipine 5 mg daily, continue levothyroxine 100 mcg and zolpidem 10 mg HS prn *Problems/Diagnosis: (1) NSTEMI (non-ST elevated myocardial infarction) Status: Acute Total Time Spent on D/C: Up to 30 Minutes Date of Service: Mar 17, 2025 Billing Provider: BHARAT FERMIN MD Common Visit Codes: 52567-YQP/OBS DISCH DAY >30min MACIEL WHITE, RES Mar 17, 2025 15:25 BHARAT FERMIN MD Mar 18, 2025 07:56
== END 2025-03-17 10:43 | disposition home or self-care (01) | DRG 280 ==
LOC: ER 20:45 → ED HOLD 21:33 → PCU 3S 03-13 00:25
PROVIDERS: ADMIT Internal Medicine; ATTEND Internal Medicine
PROC: 4A023N7 Measurement of Cardiac Sampling and Pressure, Left Heart, Percutaneous Approach (ICD-10-PCS; principal; 2025-03-14)
PROC: B2111ZZ Fluoroscopy of Multiple Coronary Arteries using Low Osmolar Contrast (ICD-10-PCS; 2025-03-14)
PROC: B2151ZZ Fluoroscopy of Left Heart using Low Osmolar Contrast (ICD-10-PCS; 2025-03-14)
PROC: B41F1ZZ Fluoroscopy of Right Lower Extremity Arteries using Low Osmolar Contrast (ICD-10-PCS; 2025-03-14)
PROC: B3281ZZ Computerized Tomography (CT Scan) of Bilateral Internal Carotid Arteries using Low Osmolar Contrast (ICD-10-PCS; 2025-03-15)
PROC: B32G1ZZ Computerized Tomography (CT Scan) of Bilateral Vertebral Arteries using Low Osmolar Contrast (ICD-10-PCS; 2025-03-15)
DX: I47.10 Supraventricular tachycardia, unspecified (principal); N17.0 Acute kidney failure with tubular necrosis; I21.A1 Myocardial infarction type 2; E03.9 Hypothyroidism, unspecified; I10 Essential (primary) hypertension; F10.939 Alcohol use, unspecified with withdrawal, unspecified; I48.91 Unspecified atrial fibrillation; E78.5 Hyperlipidemia, unspecified; H81.13 Benign paroxysmal vertigo, bilateral
CPT/HCPCS: 36415; 70450; 70496; 70551; 80048; 80053; 80061; 81003; 82570; 83036; 83735; 83880; 83935; 84300; 84439; 84443; 84484; 84540; 85025; 85610; 85730; 87081; 93005; 93306; 93458; 96374; 97116; 97161; 97530; 99152; 99291; A6258; C1760; G0378; J0153; J0360; J1200; J1644; J1938; J2003; J2250; J2270; J3010; J7030; J7040; J8597; Q9967

== ENCOUNTER 2025-04-13 08:11 | Inpatient (IN) | payer BC ==
[~2025-04-13] VITALS: Ht 172.7 cm; Wt 89.9 kg
[~2025-04-13 08:11] MED LIST: ASPI-1265 PO; ATOR40TA72 PO; LEVO100T9 PO; METO-395 PO; NOR5T PO; ZOLP-679 PO
--- NOTE | 2025-04-13 08:18 | ELECTROCARDIOGRAPH REPORT ---
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 Chico Ratliff Measurements Intervals [place] Rate: 94 P: 52 [place]: 140 QRS: 63 QRSD: 105 T: 59 QT: 365 QTc: 457 Interpretive Statements Sinus rhythm Consider left atrial enlargement RSR' in V1 or V2, right VCD or RVH Electronically Signed On 04-13-2025 18:11:[address] Chico Ratliff Please click the below link to view image of tracing.
--- NOTE | 2025-04-13 08:55 | RADIOLOGY REPORT ---
DI CHEST,SINGLE VIEW, HISTORY: CP COMPARISON: None None TECHNICAL DATA: 1 view of the chest was obtained. FINDINGS: Lines and tubes: None Cardiomediastinal silhouette: normal Pulmonary vasculature: normal Lung expansion: normal Lung airspace: normal Lung interstitium: normal Pleura: normal Pneumothorax: no Bones: Unremarkable Other: no IMPRESSION: No acute intrathoracic abnormality.
[2025-04-13 09:34] LABS: MEAN PLATELET VOLUME 7.8 FL (7.4-10.4); RED CELL DISTRIBUTION WIDTH 13.2 % (11.5-14.5)
[2025-04-13 09:56] LABS: CREATININE 1.34 MG/DL (0.60-1.10); PRO BRAIN NATRIURETIC PEPTIDE 150 PG/ML (0-125); TOTAL CARBON DIOXIDE 30.7 MMOL/L (24-32); eCRCL 55 ML/MIN; eGFR 54 ML/MIN
[2025-04-13] MEDS: ketorolac trometh 15mg/ml vial 15 MG/ML ML IV ONE (11:35)
[2025-04-13] MEDS: acetaminophen 1,000mg/100ml IV 100 ML IV ONE (11:36)
[2025-04-13] MEDS: diazepam inj 5 MG/ML inj. IV ONE (12:31)
[2025-04-13] MEDS ORDERED: magnesium sulf-water 4G/100mL 100 ML IV PRN (12:40)
[2025-04-13] MEDS ORDERED: HYDROcodone/acetaminophen 10/325mg tab PO PRN (12:40)
[2025-04-13] MEDS ORDERED: magnesium Cl slow-release 64mg tablet PO PRN (12:40)
[2025-04-13] MEDS ORDERED: magnesium hydroxide 30ml (MOM) UD suspension PO PRN (12:40)
[2025-04-13] MEDS ORDERED: potassium Cl 20 mEq SR tablet PO PRN (12:40)
[2025-04-13] MEDS ORDERED: bisacodyl 10mg suppository rectal RC PRN (12:40)
[2025-04-13] MEDS ORDERED: magnesium sulf-water 2g/50mL 50 ML IV PRN (12:40)
[2025-04-13] MEDS ORDERED: potassium Cl 40MEQ/1/2NS 520ml 520 ML IV PRN (12:40)
[2025-04-13] MEDS ORDERED: ondansetron/PF 4mg/2ml inj IV PRN (12:40)
[2025-04-13] MEDS: normal saline 1000ml 1,000 ML IV SCH (15:42)
[2025-04-13] MEDS: aspirin 81mg, enteric-coated 1 TAB TABLET.DR PO SCH (16:29)
--- NOTE | 2025-04-13 17:09 | HISTORY AND PHYSICAL-Residence ---
History & Physical Providers to CC Resident Creating Document: GIANFRANCO MATSON, ASHLEY ~ History of Present Illness Reason for Admit\Complaint: Chest pain/pressure History of Present Illness This is a 64-year-old male presented to the ER with a chief complaint of dizziness and pressure in the chest 3/10 substernal, nonradiating, constant, no aggravating or relieving factors and not associated with shortness of breath or diaphoresis. Patient was recently discharged from our hospital after a coronary angiogram during on 03/17/2025 a month ago. He has a an outpatient appointment scheduled with Dr. langston office on 05/03/2025. Meanwhile, He was asked to come back to the ER if he experiences any chest pressure. Patient endorses having a stress test 15 years ago that was normal. During the previous hospitalization patient was admitted for chest pain, palpitations, dizziness. In the ER EKG showed SVT with heart rate in 200 requiring adenosine that is subsided the SVT. Troponin was elevated 5477 which later decreased to 3365. Coronary angiogram done by Dr. Ahuja did not show any occlusion , no stents were placed. Stroke workup done at the same admission was negative as well. Patient was discharged with aspirin, atorvastatin and beta blockers, blood pressure meds. ED course: Patient was given a dose of Tylenol 1 g, Toradol and Valium which did not improve his symptoms. EKG showed sinus rhythm and troponin trend was within normal limits. Patient is being admitted under an observational status for [facility]. Allergies: Coded Allergies: No Known Allergies (Unverified , 03/12/25) Home Medications Home Medications Active Aspirin 81 Mg Tab.chew 1 Tab PO DAILY 30 Days Atorvastatin Calcium 40 Mg Tablet 1 Tab PO DAILY 30 Days Amlodipine Besylate 5 Mg Tablet 5 Mg PO DAILY Metoprolol Succinate 25 Mg Tab.sr.24h 50 Mg PO DAILY Reported Ambien (Zolpidem Tartrate) 10 Mg Tablet 1 Tab PO HSPRN PRN 30 Days Levothyroxine Sodium 100 Mcg Tablet 1 Tab PO DAILY Past Medical History Past Medical History Hypertension, atrial fibrillation, SVT, Graves disease Past Surgical History Surgical History Comment Appendicectomy, tonsillectomy, testicular surgery Family History Family History: FH: atrial fibrillation FH: thyroid cancer Knee cancer Past Social History Social History Comment Patient stopped smoking 20 years ago, earlier would smoke 2 packs per day. Patient drinks beer every day, 6-8 cans per day, light low calorie beers. No illicit drug use. PCP- Dr Payne-at [facility] Patient lives at home with his TAMIKA LUNDBERG Constitutional: No fever, chills, dizziness, weakness, weight gain or loss Eyes: No pain, erythema, discharge, blurring of vision ENT: No sore throat, epistaxis, tinnitus Cardiovascular: Chest pressure, dizziness No palpitations, syncope, lower extremity edema, paroxysmal nocturnal dyspnea Respiratory: No hemoptysis Gastrointestinal: Normal appetite. No nausea, vomiting, diarrhea, constipation, hematemesis, abdominal pain, bloating, melena or fresh blood Genitourinary: No frequency, urgency, nocturia, hematuria or dysuria Musculoskeletal: No arthralgias or myalgias Integumentary: No change in skin, hair, nails. No swelling, bruising, abrasions Neurologic: No headache, neck pain, numbness or tingling of the extremities, weakness Psychiatric: No delusions, depression, loss of interest in normal activity or change in sleep pattern, hallucinations, suicidal ideations Endocrine: No fatigue, weakness, polydipsia, polyuria, change in appetite, heat or cold intolerance, sweating, dry skin Hematological: No bleeding, petechiae, bruising Allergies: No asthma or urticaria Exam Vitals: Vital Signs Date Time Temp Pulse Resp B/P (MAP) Pulse Ox O2 Delivery O2 Flow Rate FiO2 04/13/25 15:47 71 12 117/96 (103) 97 0 04/13/25 08:19 98.2 General: General: Awake and Alert, no acute distress. HEENT: Conjunctiva pink, Sclera clear, Mucus Membranes moist Neck: Supple without masses and tenderness. Resp: Unlabored. Equal breath sounds bilaterally. Heart: Regular rhythm, normal S1 and S2, no rub, murmur or gallop, muffled heart sounds. Abdomen: Soft and non tender no organomegaly. Normal bowel sounds x4 quadrant normoactive. No guarding or rigidity. Extremities: Normal ROM, no swelling, nontender. No cyanosis,clubbing or edema. BOTTLE FEEDER: No gross motor or sensory abnormalities. Skin: Warm and Dry. Diagnostic Data Last Recorded Lab Results: 04/13/25 0904/13/25 09 Advance Care Planning Advanced Care plannin - 30 Minutes (I spent a total of 17 minutes on reviewing various resuscitative measures/ ACP with the patient at the time of admission. The patient has decided on a full code status) Additional Plan Unstable angina Continue home medications aspirin, atorvastatin, nitroglycerin PRN. Scheduled for stress test after 4 hours NPO. Follow up with Jeimy scan results Continue telemetry monitoring. EKG shows no ischemic changes, serial troponins are within normal limits, echocardiogram done one month ago showed normal EF 55-60%. Lipid panel one month ago showed high cholesterol and LDL History of Graves disease Currently on levothyroxine 100 mcg. TSH at last visit was slightly elevated at 8.49, However free T4 was normal indicating subclinical hypothyroidism continue same dose of levothyroxine History of SVT Continue beta-win after med rec. Continue telemetry monitoring History of Atrial fibrillation, not in RVR Continue home medication metoprolol 50 mg p.o. daily after med rec. Liam Vasc score two, not a candidate for anticoagulation BYRON secondary to renal tubular stasis Creatinine 1.34. Started on IV fluids NS at the rate of 100 mL/hour Code Status: Full code DVT Prophylaxis: Heparin Analgesia/Sedation: Tylenol PRN Lines/Tubes: PIV Gi Prophylaxis: Protonix Nutrition: NPO for stress test, regular diet thereafter PT: Yes Prognosis: Guarded Disposition: Admit with telemetry monitoring under observational status Gianfranco Kuo MD Internal Medicine Resident PGY-2 Date of Service: Apr 13, 2025 Billing Provider: ERIC YANG MD Common Visit Codes: 44328-[id number] INP/OBS CARE (HIGH) Secondary Visit Codes: [id number] CARE PLAN 30 MINUTES GIANFRANCO MATSON, RES Apr 13, 2025 17:09 ERIC YANG MD Apr 13, 2025 18:31
[2025-04-13 18:00] VITALS: BP 140/72; PULSE 86; RESP 15; TEMP 98; O2SAT 96
[2025-04-13] MEDS: K and/or MAG REPLACEMENT MC SCH (20:00)
[2025-04-13] MEDS: heparin, porcine 5000 units/ml vial SQ SCH (20:15)
--- NOTE | 2025-04-13 20:36 | Physician Documentation ---
History of Present Illness ~ Chief Complaint: Chest Pain Stated Complaint: CHEST PAIN Time Seen by MD: 09:46 Mode of Arrival: POV, Ambulatory HPI Chest pain heart score four risk factors age EKG findings. Given Valium Tylenol Toradol for muscular wall pain no changes admitted for stress and echo had a clean cath last month Patient is a 64-year-old male coming in today for chest pain. Patient has past medical history of angina and had a cardiac catheterization last month that was clean. He was discharged if antihypertensive medication to help with angina. Coming back today for substernal and right-sided chest pain not reproducible. She denies any shortness of breath, weakness, diaphoresis, radiation at this time. Patient also started on statin to help with hyperlipidemia and lower risk factors for cardiac events. Patient has pain at rest as well as exertion. Four to 5/10 in intensity. No other associated symptoms at this time. Medication Reconciliation Allergies: Coded Allergies: No Known Allergies (Unverified , 03/12/25) Scheduled Amlodipine Besylate (Amlodipine Besylate), 1 TAB PO DAILY Aspirin (Aspirin), 1 TAB PO DAILY Atorvastatin Calcium (Atorvastatin Calcium), 1 TAB PO DAILY Levothyroxine Sodium (Levothyroxine Sodium), 1 TAB PO DAILY, (Reported) Lisinopril (Lisinopril), 30 MG PO DAILY Metoprolol Succinate (Metoprolol Succinate), 50 MG PO DAILY Quetiapine Fumarate (Quetiapine Fumarate), 3 TAB PO HS, (Reported) Scheduled PRN Hydroxyzine Hcl* (Atarax*), 1 TAB PO BID PRN for for anxiety/agitation, (Reported) Zolpidem Tartrate (Ambien), 1 TAB PO HSPRN PRN for sleep, (Reported) Discontinued Medications Amlodipine Besylate (Amlodipine Besylate), 5 MG PO DAILY Discontinued Reason: Prescription changed Past Medical History Patient History: FH: atrial fibrillation FH: thyroid cancer Knee cancer Smoking Status: Never smoker Review of Systems All Other Systems at this time: Reviewed and Negative ROS Constitutional: Negative for fever and chills. HENT: Negative for sore throat and rhinorrhea. Eyes: Negative for pain and redness. Respiratory: Negative for cough and SOB. Cardiovascular: Positive for chest pain Gastrointestinal: Negative for nausea and vomiting. . Genitourinary: Negative for dysuria and hematuria. Musculoskeletal: Negative for acute back pain and acute neck pain. Skin: Negative for rash and pruritus. Neurological: Negative for acute numbness or weakness. Physical Exam Vital Signs: Temperature: 98.2, Source: Oral, Heart Rate: 71, Respiratory Rate: 12, BP: 117/96, Pulse Oximetry: 97, Weight: 89.900 Oxygen Flow Rate: 0 Physical Exam General: Awake [no] distress. Verbal Head: No trauma Eyes: Nl lids Nl conjunctiva. No eye discharge ENT: Mucous membranes Nl. Lips Nl. No lesions Neck: Supple. No JVD. No visible mass Resp: Rate normal. No respiratory distress. No retractions. Normal air flow. No wheezes, rhonchi, or rales. Heart: Regular rhythm. No murmur. No rub Abdomen: Soft. Nontender. No guarding. No rebound Musc/skeletal: No calf or popliteal tenderness. No edema Skin: No rash. No petechiae. Not diaphoretic Neuro: Alert, oriented. Normal speech Progress Progress Note Reason for study/Clinical History: CHEST PAIN Comparison Study: None Myocardial Perfusion Study with SPECT TECHNIQUE: The patient received an intravenous injection of 8.75 mCi of technetium-99m Sestamibi while at rest. After a short delay, SPECT tomographic images of the heart were obtained. The patient then went to the stress lab where they received an intravenous Lexiscan utilizing standard protocol. 39 mCi of technetium-99m Sestamibi was injected intravenously immediately after the start of the infusion. Gated SPECT tomographic images of the heart were acquired and processed. FINDINGS: Rotating planar images show no significant attenuation artifact. The left ventricular size is within normal limits. Very mild reversibility in the inferior wall. The left ventricular ejection fraction is 61 %. (normal greater than 50%) IMPRESSION: Mild reversibility in the inferior wall. This may represent mild ischemia versus artifact. Clinical correlation advised. Left ventricular ejection fraction is 61%. Electronically Signed by:LORENZO MATTHEW MD Date & Time: 04/14/25 3363 Results/Orders Results/Orders Orders - JACKIE ARENAS MD Chest,Single View (04/13/25 08:14) Monitor (04/13/25 08:14) Saline Lock (04/13/25 08:14) Oxygen (04/13/25 08:14) Electrocardiogram (04/13/25 08:14) Page Hospitalist (04/13/25 12:15) Fill Out Med Reconciliation (04/13/25 12:15) Page Hospitalist (04/13/25 12:17) Fill Out Med Reconciliation (04/13/25 12:17) Completed Orders - JACKIE ARENAS MD Chest,Single View (04/13/25 08:14) Cbc/Diff (04/13/25 08:14) BMP (04/13/25 08:14) PBNP (04/13/25 08:14) Electrocardiogram (04/13/25 08:14) Hs Troponin I W Calculations (04/13/25 08:14) Hs Troponin I W Calculations (04/13/25 10:14) Hs Troponin I W Calculations (04/13/25 11:14) Acetaminophen 1,000mg/100ml Iv (Ofirmev (04/13/25 11:05) Ketorolac Trometh 15mg/Ml Vial (Toradol (04/13/25 11:05) Diazepam Inj (Valium Inj) (04/13/25 12:15) Vital Signs 04/13/25 04/13/25 04/13/25 04/13/25 08:19 10:45 11:06 11:35 Temp 98.2 Pulse 94 71 Resp 16 16 14 16 B/P (MAP) 160/95 153/85 (107) Pulse Ox 97 96 O2 Flow Rate 0 0 04/13/25 04/13/25 04/13/25 04/13/25 11:46 11:51 12:11 12:31 Pulse 71 Resp 16 16 15 B/P (MAP) 158/91 (113) Pulse Ox 96 O2 Flow Rate 0 04/13/25 12:35 Pulse 80 Resp 16 B/P (MAP) 147/95 (112) Pulse Ox 96 O2 Flow Rate 0 Laboratory Tests Test 04/13/25 09:03 04/13/25 10:35 04/13/25 11:21 White Blood Count 9.4 Red Blood Count 4.68 L Hemoglobin 15.7 Hematocrit 45.6 Mean Corpuscular Volume 97.4 Mean Corpuscular Hemoglobin 33.6 H Mean Corpuscular Hemoglobin Concent 34.5 Red Cell Distribution Width 13.2 Platelet Count 261 Mean Platelet Volume 7.8 Neutrophils (%) (Auto) 77.8 H Lymphocytes (%) (Auto) 12.2 L Monocytes (%) (Auto) 6.5 Eosinophils (%) (Auto) 2.4 Basophils (%) (Auto) 1.1 H Neutrophils # (Auto) 7.3 Lymphocytes # (Auto) 1.1 Monocytes # (Auto) 0.6 Eosinophils # (Auto) 0.2 Basophils # (Auto) 0.1 CBC Comment Sodium Level 138 Potassium Level 3.5 Chloride Level 100 Carbon Dioxide Level 30.7 Anion Gap 7 L Blood Urea Nitrogen 10 Creatinine 1.34 H Estimated GFR/1.73 m2 54 BUN/Creatinine Ratio 7.5 L Glucose Level 123 H Calcium Level 9.6 Troponin I High Sensitivity 6 6 6 Pro-B-Type Natriuretic Peptide 150 H Albumin 4.1 Chemistry Comments Troponin I High Sens Percent Delta 0 0 Troponin I Hi Sens Absolute Change 0 0 EKG/XRAY/CT/US/VASC/MRI Chest X-Ray : Interpreted By: radiologist Views: 1 VIEW Additional Comments DI CHEST,SINGLE VIEW, HISTORY: CP COMPARISON: None None TECHNICAL DATA: 1 view of the chest was obtained. FINDINGS: Lines and tubes: None Cardiomediastinal silhouette: normal Pulmonary vasculature: normal Lung expansion: normal Lung airspace: normal Lung interstitium: normal Pleura: normal Pneumothorax: no Bones: Unremarkable Other: no IMPRESSION: No acute intrathoracic abnormality. Electronically Signed by:LUIS ALFREDO MARAVILLA MD Date & Time: 04/13/25 0840 Ultrasound : Interpreted By: radiologist Impression APPROVED REPORT EXAM: Limited 2D, Doppler, and color-flow Echocardiogram. 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 154.2 cm/s AO Peak GR. 9.5 mmHg Tricuspid Valve TR P. Velocity 156 cm/s RAP ESTIMATE 10 mmHg TR Peak Gr. 10 mmHg RVSP 20 mmHg LEFT VENTRICLE Normal LV size and wall thickness. Overall systolic function is normal. LVEF is 60-65%. RIGHT VENTRICLE Right ventricle is mildly dilated with normal function ATRIA The left atrium size is normal. AORTIC VALVE Trileaflet AV appears mildly sclerotic without stenosis. No insufficiency. AV not fully evaluated due to focused exam. MITRAL VALVE Mild mitral annular calcification without stenosis. Trace regurgitation by color and spectral flow Doppler. MV not fully evaluated due to focused exam. TRICUSPID VALVE The tricuspid valve is normal in structure with trace regurgitation by color and spectral flow Doppler. PULMONIC VALVE Pulmonic valve is grossly normal in structure. GREAT VESSELS The aortic root is normal in size. PERICARDIUM Normal pericardium. No effusion. Other Information Study Quality: Adequate Dictated by:LEDY CAI MD Dictation date and time:04/14/25 1219 Electronically Signed by: LEDY CAI MD Date and Time: 04/14/25 1220 Medical Decision Making Additional information obtaine: old records, family, N/A Findings MDM: Limited: (2 points from category 1 or one discussion with independent historian). Moderate: one of the following (3 points from category 1, or independent interpretations of tests performed by another physician/QHP: (ct,ecg,rad yung,rhythm strip,or comparing xray to prior), or discussion of tests or management with other professionals (not including [facility] ER doc/PA or family members.) High: (2 of 3 from : category 1 (3 points), independent interpretation of tests performed by another physician/QHP, and discussion of tests or management). Prior ER notes reviewed: Category 1: Number of Tests ordered or reviewed: [3+] Number of Independent Historians: [1] Non [facility] ER notes reviewed: 1. Reviewed nursing notes 2. Reviewed triage note 3. Category 2: I independently interpreted the: [X-ray and EKG] Category 3: Discussion with other professionals: 2 SOCIAL DETERMINANTS OF HEALTH Problems related to: ( )Challenges with access to Primary Care or Outpatient Speciality Care ( )Psychosocial circumstances such as mental health issues ( )Social environment: such as violence or substance abuse ( )Housing and economic circumstances: such as homelessness ( )Employment and unemployment: such as recently loss of employment ( )Occupational exposures or injuries: ( )Accessing ED outside of normal PCP hours ( )Language barrier: ( )Primary support group, including family circumstances: Prescription Management: Rx strength meds given in ED: [5 mg p.o. Valium, 1 g of Tylenol] New Prescriptions: [] ( )I have reviewed the patient's medications and I do not recommend any changes at this time. (Applies only if checked) Comorbid conditions include but are not limited to: [Hyperlipidemia, hypertension, angina] Testing or interventions considered: [Stress test, echocardiogram] Differential includes but is not limited to: [ACS, pneumonia, pleurisy, costochondritis] Patient did not have any difference in pain after medication and muscle relaxer were given. Heart score was four. EKG shows signs of ischemia including ST elevation or depression. Chest x-ray negative. Troponin negative. Patient admitted for heart score and continued chest pain for cardiac consultation. Admitted to the hospitalist at this time. Diagnosis: Angina, pleurisy, costochondritis Heart Score: 4 Differential Dx:Considerations: Include: angina, chest wall pain, costochondritis Additional Information See MDM Departure Disposition: ADMITTED INPATIENT Admitted to Inpatient Unit: to hospitalist Impression: Primary Impression: Chest pain Additional Impressions: Chest pain at rest Chest pain on exertion Chest wall pain Acute chest pain Condition: Stable Discharge Instructions: Nonspecific Chest Pain, Adult, Costochondritis Referrals: NO PRIMARY CARE PROVIDER (PCP) Prescriptions Lisinopril (LISINOPRIL) 10 Mg Tablet 30 MG PO DAILY for 30 Days, #30 TAB Prov: GIANFRANCO MATSON, RES 04/15/25 Amlodipine Besylate (Amlodipine Besylate) 10 Mg Tablet 1 TAB PO DAILY for 30 Days, #30 TAB 0 Refills Prov: GIANFRANCO MATSON, RES 04/15/25 Education Educated: Patient, Family Educated regarding: diagnosis, treatment, prognosis, need for follow up Signature Scribe Signature: . Attestation: Scribed for Jackie Arenas MD by Jackie Arenas . 04/15/25 0108 JACKIE ARENAS MD Apr 13, 2025 20:35
[2025-04-13 22:00] VITALS: BP 135/76; PULSE 60; RESP 12; TEMP 97.6; O2SAT 96
[2025-04-14] VITALS (15 sets, daily range): BP systolic 119–210; BP diastolic 70–114; PULSE 65–120; RESP 9–19; TEMP 97.4–98.8; O2SAT 93–100
[2025-04-14 07:40] LABS: MEAN PLATELET VOLUME 7.9 FL (7.4-10.4); RED CELL DISTRIBUTION WIDTH 13.4 % (11.5-14.5)
[2025-04-14 07:46] LABS: CREATININE 1.05 MG/DL (0.60-1.10); TOTAL CARBON DIOXIDE 26.9 MMOL/L (24-32); eCRCL 70 ML/MIN; eGFR 71 ML/MIN
[2025-04-14] MEDS ORDERED: aminophylline 250mg/10ml inj. IV ONE ×2 (11:25→11:30)
[2025-04-14] MEDS ORDERED: regadenoson 0.4mg/5ml syringe IV ONE (11:30)
[2025-04-14] MEDS: regadenoson 0.4mg/5ml syringe IV ONE (11:53)
--- NOTE | 2025-04-14 12:20 | CARDIOLOGY REPORT ---
APPROVED REPORT EXAM: Limited 2D, Doppler, and color-flow Echocardiogram. 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 154.2 cm/s AO Peak GR. 9.5 mmHg Tricuspid Valve TR P. Velocity 156 cm/s RAP ESTIMATE 10 mmHg TR Peak Gr. 10 mmHg RVSP 20 mmHg LEFT VENTRICLE Normal LV size and wall thickness. Overall systolic function is normal. LVEF is 60-65%. RIGHT VENTRICLE Right ventricle is mildly dilated with normal function ATRIA The left atrium size is normal. AORTIC VALVE Trileaflet AV appears mildly sclerotic without stenosis. No insufficiency. AV not fully evaluated due to focused exam. MITRAL VALVE Mild mitral annular calcification without stenosis. Trace regurgitation by color and spectral flow Doppler. MV not fully evaluated due to focused exam. TRICUSPID VALVE The tricuspid valve is normal in structure with trace regurgitation by color and spectral flow Doppler. PULMONIC VALVE Pulmonic valve is grossly normal in structure. GREAT VESSELS The aortic root is normal in size. PERICARDIUM Normal pericardium. No effusion. Other Information Study Quality: Adequate
--- NOTE | 2025-04-14 15:57 | RADIOLOGY REPORT ---
Reason for study/Clinical History: CHEST PAIN Comparison Study: None Myocardial Perfusion Study with SPECT TECHNIQUE: The patient received an intravenous injection of 8.75 mCi of technetium-99m Sestamibi while at rest. After a short delay, SPECT tomographic images of the heart were obtained. The patient then went to the stress lab where they received an intravenous Lexiscan utilizing standard protocol. 39 mCi of technetium-99m Sestamibi was injected intravenously immediately after the start of the infusion. Gated SPECT tomographic images of the heart were acquired and processed. FINDINGS: Rotating planar images show no significant attenuation artifact. The left ventricular size is within normal limits. Very mild reversibility in the inferior wall. The left ventricular ejection fraction is 61 %. (normal greater than 50%) IMPRESSION: Mild reversibility in the inferior wall. This may represent mild ischemia versus artifact. Clinical correlation advised. Left ventricular ejection fraction is 61%.
--- NOTE | 2025-04-14 17:49 | PROGRESS NOTE- Residence ---
Progress Note - Resident Providers to CC Resident Creating Document: ROSA HICKS RES ~ Antibiotic Timeout Antibiotic Ordered?: No Subjective Patient seen and examined today. Comfortably resting in the bed. Denies any new concerns Objective Vital Signs Date Time Temp Pulse Resp B/P (MAP) Pulse Ox O2 Delivery O2 Flow Rate FiO2 04/14/25 17:33 93 04/14/25 11:42 16 143/77 99 Room Air 0.0 04/14/25 02:00 98.1 Result Diagram: 04/14/25 0650 04/14/25 0650 General: Alert and oriented x 4 HEENT: Normocephalic and atraumatic. Pupils equal round and reactive to light and accommodation. Extraocular movements intact. Oral and nasal mucosa moist Neck: Trachea is in midline. No masses or JVD Lungs: Bilateral normal breath sounds. No crackles, rhonchi or wheezes Heart: Regular rate and rhythm. S1-S2 normal. No rubs or murmurs Abdomen: Soft, nontender and nondistended. Bowel sounds present DEPENDENCY COUNSELOR: No gross sensory or motor abnormalities Extremities: No cyanosis, clubbing or edema Skin: Warm and dry Assessment Assessment This 64-year-old male with a past medical history of hypertension, paroxysmal AFib, SVT presented to the ER with a chief concern of chest pressure. Admitted for further management Plan Plan Unstable angina Troponins negative EKG showed sinus rhythm and no significant ST or T-wave changes Lexiscan showed mild reversible defect in the inferior wall Telemetry showed sinus rhythm in 80s Cardiology-Dr.A Monzon was consulted and he kindly agreed to evaluate the patient Continue home medication aspirin 81 mg p.o. daily, metoprolol succinate 50 mg p.o. daily, Lipitor 40 mg p.o. daily A1c in February 2025 was 5.6 LDL in February 2025 was 122 Echocardiogram showed LVEF 60-65%, RV mildly dilated, trace mitral regurgitation and trace tricuspid regurgitation. No significant wall abnormalities Continue heart healthy diet UA and urine tox ordered History of Graves disease Currently on levothyroxine 100 mcg. TSH at last visit was slightly elevated at 8.49, However free T4 was normal indicating subclinical hypothyroidism continue same dose of levothyroxine History of SVT and paroxysmal AFib Telemetry showed sinus rhythm in 80s Continue metoprolol Liam Vasc score 1. Will be 2 if he has CAD Anticoagulation anyway held till cardiology evaluation BYRON secondary to renal tubular stasis Creatinine improving Continue IV fluids Hypertension Given one dose of lisinopril 20 mg p.o. once and amlodipine 10 mg p.o. once as systolic blood pressure went up to 190 Started amlodipine 5 mg p.o. daily, hydralazine 25 mg p.o. q.8h and continue metoprolol Prophylaxis: Heparin 5000 units subcutaneous q.12h Rosa Hicks MD Internal Medicine Resident, PGY 3 Date of Service: Apr 14, 2025 Billing Provider: ERIC YANG MD Common Visit Codes: [id number] INP/OBS CARE(HIGH) ROSA HICKS RES Apr 14, 2025 17:49 ERIC YANG MD Apr 14, 2025 18:56
--- NOTE | 2025-04-14 20:19 | CONSULTATION REPORT ---
Cardiac Consultation Report Providers to CC CC: ALO RAND MD ~ Progress Note: 64yo man with HTN, HLD, EtOH Abuse, SVT admitted with CP x 2 days. He states CP started on [place], has been constant since, 2-06/26, non-radiating. Associated with some dizziness and SOB. States he stopped drinking EtOH the day before john. Subjective Subjective CP improved. Objective Vitals Vital Signs Date Time Temp Pulse Resp B/P (MAP) Pulse Ox O2 Delivery O2 Flow Rate FiO2 04/14/25 17:43 91 04/14/25 15:10 183/100 (127) 04/14/25 15:00 98.8 14 96 Room Air 04/14/25 11:42 0.0 Lab Results: 04/14/25 0650 04/14/25 0650 Objective GENERAL: Awake, alert, NAD CV: Reg rhythm, normal rate. no murmurs LUNGS: CTAB GI: +BS, soft, non-tender/distended. EXT: 2+ radial pulses, no edema PSYCH: cooperative Problem\Assessment\Plan Problems/Diagnosis: (1) Chest pain Assessment & Plan: Suspect non-cardiac. States CP constant x 48 hours, neg trop. TTE with preserved LVEF. MPI with possible inferior defect, however, [facility] 02/2025 with normal coronary arteries. --Cont BP control MING RAND MD Apr 14, 2025 20:19
[2025-04-15 02:00] VITALS: BP 126/72; PULSE 59; RESP 10; TEMP 98.1; O2SAT 98
[2025-04-15] MEDS: HYDROcodone/acetaminophen 5mg/325mg tablet PO PRN (04:33)
[2025-04-15 06:00] VITALS: BP 120/67; PULSE 63; RESP 16; TEMP 97.7; O2SAT 98
[2025-04-15 07:18] LABS: MEAN PLATELET VOLUME 7.5 FL (7.4-10.4); RED CELL DISTRIBUTION WIDTH 13.3 % (11.5-14.5)
[2025-04-15 07:31] LABS: CREATININE 1.02 MG/DL (0.60-1.10); TOTAL CARBON DIOXIDE 25.1 MMOL/L (24-32); eCRCL 72 ML/MIN; eGFR 74 ML/MIN
[2025-04-15 08:00] VITALS: RESP 16; O2SAT 98
[2025-04-15] MEDS ORDERED: non-formulary drug (Atorvastatin Calcium 1 TAB) PO SCH (08:00)
[2025-04-15 08:30] VITALS: BP 143/89
[2025-04-15] MEDS: levoTHYROXINE 100mcg tablet PO SCH (08:30)
[2025-04-15] MEDS: metoprolol succinate 25mg (24-HOUR) SR. Tablet PO SCH (08:34)
[2025-04-15] MEDS: potassium Cl 20 mEq SR tablet PO PRN (08:35)
[2025-04-15] MEDS ORDERED: QUET25TA36 PO (08:53)
[2025-04-15] MEDS ORDERED: HYDR-3686 PO (08:53)
[2025-04-15 11:00] VITALS: BP 115/71; PULSE 66; RESP 10; TEMP 98.1; O2SAT 96
[2025-04-15] MEDS ORDERED: AMLO10TA13 PO (11:22)
[2025-04-15] MEDS ORDERED: LISI10TA27 PO (11:22)
--- NOTE | 2025-04-15 11:57 | DISCHARGE SUMMARY-Residence ---
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 Monzon Complications: none Condition on DC: Stable New Medications: Lisinopril (Lisinopril) 10 Mg Tablet 30 MG PO DAILY for 30 Days, #30 TAB Changed Medications: Amlodipine Besylate (Amlodipine Besylate) 10 Mg Tablet 1 TAB PO DAILY for 30 Days, #30 TAB 0 Refills (Changed from: Amlodipine Besylate 5 Mg Tablet 5 Mg PO DAILY #30 TAB) Continued Medications: Aspirin (Aspirin) 81 Mg Tab.chew 1 TAB PO DAILY for 30 Days, #30 TAB.CHEW Atorvastatin Calcium (Atorvastatin Calcium) 40 Mg Tablet 1 TAB PO DAILY for 30 Days, #30 TAB 0 Refills Hydroxyzine Hcl* (Atarax*) 25 Mg Tablet 1 TAB PO BID PRN for for anxiety/agitation Levothyroxine Sodium (Levothyroxine Sodium) 100 Mcg Tablet 1 TAB PO DAILY Metoprolol Succinate (Metoprolol Succinate) 25 Mg Tab.sr.24h 50 MG PO DAILY, #30 TAB.SR Quetiapine Fumarate (Quetiapine Fumarate) 25 Mg Tablet 3 TAB PO HS Zolpidem Tartrate (Ambien) 10 Mg Tablet 1 TAB PO HSPRN PRN for sleep for 30 Days, #30 TAB 0 Refills Discharge Summary: History of Present Illness (HPI) The patient is a 64-year-old male who presented to the Emergency Department with complaints of dizziness and substernal chest pressure rated 3/10 in intensity. The chest discomfort was constant, non-radiating, and not associated with shortness of breath, diaphoresis, nausea, or vomiting. There were no identifiable aggravating or relieving factors. The patient reported that he was recently discharged from our hospital on 03/17/2025 following an admission for chest pain, palpitations, and dizziness. During that hospitalization, he was found to have supraventricular tachycardia (SVT) with a heart rate of 200 bpm, which resolved after administration of adenosine. His troponin was elevated at 5477 ng/L, which subsequently down-trended to 3365 ng/L. A coronary angiogram performed by Dr. Ahuja revealed no obstructive coronary artery disease, and no stents were placed. Stroke workup at that time was negative. He was discharged on aspirin, atorvastatin, beta-win, and antihypertensive medications. The patient has a scheduled outpatient cardiology follow-up on 05/03/2025 and was advised to return to the ER if chest pressure recurred. He also reported a normal stress test approximately 15 years ago. Hospital Course Upon arrival to the ED, the patient was hemodynamically stable. He received Tylenol 1 g, Toradol, and Valium without significant improvement in symptoms. Initial EKG demonstrated sinus rhythm without ischemic changes, and serial troponins remained within normal limits. Given his history and persistent chest pressure, he was admitted under observation status for further evaluation, including a Lexiscan stress test. Telemetry monitoring was initiated, and home medications including aspirin, atorvastatin, and metoprolol were continued. The Lexiscan stress test revealed a mild reversible defect in the inferior wall, raising concern for possible ischemia. Cardiology consultation was obtained, and Dr. Hardy Monzon recommended continuation of aspirin, beta-win, and statin therapy. Echocardiogram from the prior admission showed preserved left ventricular ejection fraction (6065%), mild right ventricular dilation, trace mitral and tricuspid regurgitation, and no significant wall motion abnormalities. Serial troponins remained negative throughout this admission, and EKGs showed no ST-T changes. The patients blood pressure was intermittently elevated, requiring a one-time dose of lisinopril 20 mg and amlodipine 10 mg. He was subsequently started on amlodipine 5 mg daily and hydralazine 25 mg every 8 hours in addition to metoprolol. His renal function was mildly impaired on admission (creatinine 1.34 mg/dL), likely secondary to renal tubular stasis, and improved with intravenous fluids. Thyroid function tests from the previous visit showed subclinical hypothyroidism (TSH 8.49, normal free T4), and he remained on levothyroxine 100 mcg daily. Telemetry during hospitalization showed sinus rhythm in the 80s without recurrence of SVT or atrial fibrillation. CHADSVASc score was 1 (would be 2 if CAD confirmed), and anticoagulation was deferred pending cardiology evaluation. Lipid panel from February 2025 showed LDL 122 mg/dL, and HbA1c was 5.6%. The patient tolerated a heart-healthy diet after completion of the stress test and remained clinically stable. He was discharged in stable condition with instructions to continue aspirin, atorvastatin, lisinopril, metoprolol, amlodipine, and levothyroxine. He was advised to follow up with cardiology on 05/03/2025 and primary care within 12 weeks. Vital Signs Date Time Temp Pulse Resp B/P (MAP) Pulse Ox O2 Delivery O2 Flow Rate FiO2 04/15/25 08:35 85 04/15/25 08:30 143/89 (107) 04/15/25 08:00 16 98 Room Air 04/15/25 06:00 97.7 04/14/25 11:42 0.0 Laboratory Tests Test 04/14/25 06:50 04/15/25 06:47 White Blood Count 6.9 X10'3 6.2 X10'3 Red Blood Count 4.22 X10'6 4.07 X10'6 Hemoglobin 13.9 g/dl 13.6 g/dl Hematocrit 40.4 % 39.1 % Mean Corpuscular Volume 95.8 FL 95.9 FL Mean Corpuscular Hemoglobin 33.0 PG 33.3 PG Mean Corpuscular Hemoglobin Concent 34.5 g/dL 34.7 g/dL Red Cell Distribution Width 13.4 % 13.3 % Platelet Count 211 X10'3 191 X10'3 Mean Platelet Volume 7.9 FL 7.5 FL Neutrophils (%) (Auto) 67.0 % 64.4 % Lymphocytes (%) (Auto) 20.2 % 20.6 % Monocytes (%) (Auto) 8.9 % 11.4 % Eosinophils (%) (Auto) 2.5 % 2.4 % Basophils (%) (Auto) 1.4 % 1.2 % Neutrophils # (Auto) 4.7 X10'3 4.0 X10'3 Lymphocytes # (Auto) 1.4 X10'3 1.3 X10'3 Monocytes # (Auto) 0.6 X10'3 0.7 X10'3 Eosinophils # (Auto) 0.2 X10'3 0.1 X10'3 Basophils # (Auto) 0.1 X10'3 0.1 X10'3 CBC Comment Sodium Level 137 MMOL/L 139 MMOL/L Potassium Level 3.6 MMOL/L 3.3 MMOL/L Chloride Level 102 MMOL/L 104 MMOL/L Carbon Dioxide Level 26.9 MMOL/L 25.1 MMOL/L Anion Gap 8 10 Blood Urea Nitrogen 13 MG/DL 9 MG/DL Creatinine 1.05 MG/DL 1.02 MG/DL Estimated GFR/1.73 m2 71 ML/MIN 74 ML/MIN BUN/Creatinine Ratio 12.4 8.8 Glucose Level 99 MG/DL 105 MG/DL Calcium Level 8.7 MG/DL 8.5 MG/DL Total Bilirubin 0.7 MG/DL 0.6 MG/DL Aspartate Amino Transf (AST/SGOT) 86 U/L 43 U/L Alanine Aminotransferase (ALT/SGPT) 87 U/L 63 U/L Alkaline Phosphatase 129 IU/L 127 IU/L Total Protein 7.0 G/DL 6.6 G/DL Albumin 3.4 G/DL 3.2 G/DL Globulin 3.6 G/DL 3.4 G/DL Albumin/Globulin Ratio 0.9 0.9 Chemistry Comments Physical Examination at Discharge General: Patient is alert, oriented to person, place, and time. No acute distress noted. Vital Signs: Stable; afebrile. Blood pressure within acceptable range, heart rate regular, respiratory rate normal, oxygen saturation >95% on room air. HEENT: Normocephalic, atraumatic. Pupils equal, round, and reactive to light. Extraocular movements intact. Oral mucosa moist, no lesions. Neck: Supple, no jugular venous distention, no lymphadenopathy, no thyromegaly. Cardiovascular: Regular rate and rhythm, normal S1 and S2, no murmurs, rubs, or gallops. Peripheral pulses palpable and symmetric. No peripheral edema. Respiratory: Lungs clear to auscultation bilaterally, no wheezes, rales, or rhonchi. Normal respiratory effort. Abdomen: Soft, non-tender, non-distended. Bowel sounds present in all quadrants. No hepatosplenomegaly. Extremities: No cyanosis, clubbing, or edema. Full range of motion. Skin: Warm, dry, intact. No rashes or lesions. Neurological: Alert and oriented 3. Cranial nerves IIXII grossly intact. Motor strength 5/5 in all extremities. Sensation intact. No focal deficits. Psychiatric: Appropriate mood and affect. Cooperative during examination. Imaging: Lexiscan Mild reversibility in the inferior wall. This may represent mild ischemia versus artifact. Clinical correlation advised. Left ventricular ejection fraction is 61%. Echocardiogram Normal LV size and wall thickness. Overall systolic function is normal. LVEF is 60-65%. Chest x-ray No acute intrathoracic abnormality. Discharge Recommendations Continue home medications: aspirin, atorvastatin, metoprolol, levothyroxine, amlodipine, nitroglycerin PRN for chest pain. Follow a heart-healthy, low-sodium diet and maintain hydration. Monitor blood pressure daily and keep a log; report chest pain, palpitations, or dizziness immediately. Follow up with cardiology on 05/03/2025 and primary care in 12 weeks. Seek emergency care for chest pain unrelieved by nitroglycerin or new/worsening symptoms. *Problems/Diagnosis: (1) Chest pain Status: Resolved Total Time Spent on D/C: > 30 Minutes Date of Service: Apr 15, 2025 Billing Provider: ERIC YANG MD Common Visit Codes: 22678-[id number] DISCH DAY >30min GIANFRANCO MATSON, ASHLEY Apr 15, 2025 11:24 ERIC YANG MD Apr 15, 2025 15:19
== END 2025-04-15 11:55 | disposition home or self-care (01) | DRG 313 ==
LOC: ER 08:11 → ED HOLD 12:42 → PCU 3S 17:15
PROVIDERS: ADMIT Internal Medicine; ATTEND Internal Medicine
PROC: 4A02XM4 Measurement of Cardiac Total Activity, External Approach (ICD-10-PCS; principal; 2025-04-14)
PROC: 3E033HZ Introduction of Radioactive Substance into Peripheral Vein, Percutaneous Approach (ICD-10-PCS; 2025-04-14)
DX: R07.89 Other chest pain (principal); N17.0 Acute kidney failure with tubular necrosis; E05.00 Thyrotoxicosis with diffuse goiter without thyrotoxic crisis or storm; I10 Essential (primary) hypertension; E03.9 Hypothyroidism, unspecified; E78.5 Hyperlipidemia, unspecified; I48.0 Paroxysmal atrial fibrillation; Z85.850 Personal history of malignant neoplasm of thyroid
CPT/HCPCS: 36415; 71045; 78452; 80048; 80053; 83880; 84484; 85025; 87081; 93005; 93017; 93308; 96365; 96375; 99285; A9500; G0378; J0131; J1644; J1885; J2785; J3360; J7030